=== PATIENT | male | born 1935 | race Caucasian/White ===

== ENCOUNTER 2019-07-21 09:30 | Outpatient (RCR) | payer OTHER, SELFPAY ==
--- NOTE | 2019-06-07 13:51 | ST.OPIE ---
Visit Care Team Role Provider Type Kerry Desai MD Primary Care Provider Non-Staff Specialty: Family Practice Address: [address], [address], [place], [address] Email: J Luis Tripathi MD Attending Provider Non-Staff Specialty: Neurology Address: [address], [place], [address] Email: Speech-Language Pathology Initial Evaluation MID LEVEL GAME DESIGNER Voice Resonance Evaluation Start: 06/03/19 17:29 Freq: Status: Active Protocol: Document 06/02/19 13:07 FRANTZ (Rec: 06/07/19 13:47 [email or web address] [email or web address]) Voice and Resonance Assessment Session Time Visit Start Time 13:30 Visit Stop Time 14:25 Total Visit Minutes 55 Visit Information Visit Number Initial Evaluation Plan of Care Dates 06/02/19 - 08/25/19 Insurance Information [employer] Next Note Type Next Note Type Treatment Note Referral Referring Physician Dr. Tripathi Reason for Referral Parkinson's disease Setting Setting Outpatient Care Patient History General Information This pleasant 83-yr-old male was seen by Neurologist in November of 2018 secondary to development of tremor in left hand with subsequent diagnosis of Parkinson's disease. He has started Carbadopa/Levadopa medication with some benefit. The pt underwent MRI in [place] since being seen by Neurologist, and he reports findings were normal. The pt is planning to participate in LSVT-Big PT program after the new year and arrives today for MID LEVEL GAME DESIGNER evaluation and discussion of LSVT-Loud program. He denied changes in vocal quality or loudness, stating that he has always tended to and continues to tend to speak more loudly than necessary. Also denies changes in swallow and cognition. Hearing Hearing Level Normal Vision Vision Status Impaired Comments Prescription glasses worn primarily for reading [place] Langauge Language(s) Spoken in the Home [place] Citizen Occupational Status Occupation Status Retired Previous Therapy Previous Speech-Language Therapy No Subjective Subjective The pt arrived on time and provided case history and questions related to LSVT-Loud and other related MID LEVEL GAME DESIGNER services. - Laryngeal Performance Voice Handicap Index VHI Comments Not administered. Pt denies voice handicap CAPE-V Overall Severity 6% Roughness 0% Breathiness 0% Strain 10% Pitch 11% (mildly monotone, particularly in reading task) Normal Resonance? Yes Maximum Phonation Time MPT Norms: Women (15-25) Men (25-35) Loudness (50-60 dB); Speaking Rate: Oral Reading of Sentences (190 Words Per Minute); Oral Reading of Paragraphs (160-170 WPM); Speaking Rate in Conversation (150-250 WPM) Maximum Phonation Time 20 Maximum Phonation Time Adequate for Speech Maximum Phonation Time Comments Avg loudness 70 dB; increased to 76 dB with verbal prompting Jitter/Shimmer Norms: Jitter (Less than or equal to 1.040% - Frequency) Norms: Shimmer (Less than or equal to 3.810% - Amplitude) Jitter 0.27% WNL Shimmer 2.48% WNL Pitch [place] Pitch [place] WFL Pitch [place] Comments 92-396 Hz Breath Support Speaks on Room Air Yes Voice Pitch Range Norms: Women (100-300 Hz) Men (70-250 Hz) Fundamental Frequency Norms: Women (Mean: 225 Hz; Range: 155-334 Hz) Men ( Mean: 128 Hz; Range: 85-196 Hz) Voice Pitch Normal Voice Loudness Normal Voice Phonatory-based Quality Normal Fundamental Frequency 106 Hz WNL Intensity WNL: 64-72 dB in conversation in quiet environment Paradoxical Vocal Fold Movement No Indications Resonance Nasal Resonance Normal Findings Findings Mild Impairment Voice/Resonance Assessment Assessment The pt presents with minimal impairment characterized by mild monotone vocal quality, greater in reading task than conversation. All other features are currently WNL. In consideration of new Parkinson's disease (PD) diagnosis, skilled intervention is recommended to provide education related to potential changes in function (voice, swallow, expressive/ receptive/cognitive communication skills) that often appear with PD, and to provide training in exercises and strategies to maintain or improve current function. Prognosis Rehabilitation Potential Excellent - Recommendations Treatment Recommended Yes Treatment Frequency/Duration 1x/wk for 6 wks Placement Recommendation Home Therapy Recommendations LSVT-Loud is not recommended at this time; instead less intense therapy is recommended targeting education related PD, training in vocal function (quality, varied pitch, and normal loudness) and oral motor exercises to maintain/ improve facial expression and speech intelligibility critical to expressive communication in the presence of a progressive disease. If, during the course of treatment, the pt and clinician feel the pt would benefit from a course in LSVT-Loud, POC will be modified to reflect this. The pt was in agreement with this plan. Short Term Goals 1. The pt will demonstrate understanding of potential effects of PD on voice, swallow, speech intelligibility, and expressive/receptive/ cognitive communication skills, as demonstrated by retell tasks. 2. The pt will perform sustained phonation for 25 sec with avg loudness at or above 75 dB to increase/maintain respiratory muscle strength necessary for voice, speech and swallow/cough. 3. The pt will perform pitch variation tasks (e.g., pitch glides, accent method reading/ speech tasks, etc.) with 90% accuracy to reduce monotone quality of voice. 4. The pt will perform oral motor exercises independently to improve/maintain facial expression critical to expressive communication. Customer Facilities Supervisor Goals 1. The pt will demonstrate >85% compliance with HEP to establish routine exercises and reduce rate of progression of disease symptoms. 2. The pt will maintain vocal loudness WNL in a variety of environments to improve/ maintain speech intelligibility for functional tasks. 3. The pt will employ strategies to reduce monotone and improve/maintain facial expression for expressive communication in the presence of PD. Patient/Caregiver Education Patient/Family Education Described results of evaluation,Patient Understanding,Patient Needs More Info
--- NOTE | 2019-06-29 14:31 | ST.OPTN ---
Visit Care Team Role Provider Type Kerry Desai MD Primary Care Provider Non-Staff Address: [address], [address], [place], [address] J Luis Tripathi MD Attending Provider Non-Staff Address: [address], [place], [address] CUSTOMS CONSULTANT Treatment Note CUSTOMS CONSULTANT Treatment Note Start: 06/03/19 17:29 Freq: Status: Active Protocol: Document 06/29/19 10:41 FRANTZ (Rec: 06/29/19 10:41 [email or web address]) Speech Pathology Treatment Note Session Time Visit Start Time 10:35 Visit Stop Time 11:20 Total Visit Minutes 45 Visit Information Visit Number 07/03 Plan of Care Dates 06/02/19 - 08/25/19 Insurance Information [employer] Setting Treatment Setting Outpatient Care Visit Type Note Type Treatment Note Next Note Type Next Note Type Treatment Note General Information General Information This pleasant 83-yr-old male was seen by Neurologist in November of 2018 secondary to development of tremor in left hand with subsequent diagnosis of Parkinson's disease. He has started Carbadopa/Levadopa medication with some benefit. The pt underwent MRI in [place] since being seen by Neurologist, and he reports findings were normal. The pt is planning to participate in LSVT-Big PT program after the new year and arrives today for CUSTOMS CONSULTANT evaluation and discussion of LSVT-Loud program. He denied changes in vocal quality or loudness, stating that he has always tended to and continues to tend to speak more loudly than necessary. Also denies changes in swallow and cognition. Subjective Observations/Patient Presentation Pt arrived on time. No new complaints. Chief Complaint(s) Voice Rehab Expectation/Goals: Patient Goals Maintain vocal loudness and clarity over progression of PD . Patient Knowledge/Awareness of CUSTOMS CONSULTANT Role Excellent in Treatment Objective Short Term Goals 1. The pt will demonstrate understanding of potential effects of PD on voice, swallow, speech intelligiblity , and expressive/receptive/ cognitive communication skills , as demonstrated by retell tasks. 2. The pt will perform sustained phonation for 25 sec with avg loudness at or above 75 dB to increase/maintain respiratory muscle strength necessary for voice, speech and swallow/cough. 3. The pt will perform pitch variation tasks (e.g., pitch glides, accent method reading/ speech tasks, etc.) with 90% accuracy to reduce monotone quality of voice. 4. The pt will perform oral motor exercises independently to improve/maintain facial expression critical to expressive communication. Senior Care Goals 1. The pt will demonstrate >85 % compliance with HEP to establish routine exercises and reduce rate of progression of disease symptoms. 2. The pt will maintain vocal loudness WNL in a variety of environments to improve/ maintain speech intelligibility for functional tasks. 3. The pt will employ strategies to reduce monotone and improve/maintain facial expression for expressive communication in the presence of PD. Treatment Activities Pt completed VHI with total score of 2 (1 on physical subscale, 1 on functional subscale) - WNL. Initiated LSVT-like exercises to increase breath support for voice and speech, pitch range exercises to maintain voice inflection and prevent monotone, functional phrases and reading tasks to increase vocal loudness in speech. MPT = 14.2s with loudness fading consistently (avg loudness 74 dB). Max duration with increased loudness effort = 10.26s with avg 83.5 dB. Pitch Range = 88-382 Hz, avg loudness (high) 85.5, (low) 74 .5 Pt read functional phrases with avg loudness 73 dB Assessment Patient Response to Treatment Excellent Rehab Potential Excellent Impairments Identified Parkinson's Disease,Speech Intelligibility,Vocal Quality Assessment of Improvement The pt was highly receptive to exercises targeting increasing breath support, maintaining functional loudness levels of voice, and pitch range exercises to prevent/decrease monotone. He participated in creating functional phrases and verbalized understanding of their purpose in promoting internal prompts. The pt expressed concern of occasional feelings of running out of breath when speaking, and that he and his both tend to be monotone and will benefit from these exercises. Reviewed with Patient Goals,Progress Being Made,Home Exercise Program Patient/Caregiver Understanding Excellent Plan Treatment Emphasis Next Session Reading passages targeting vocal inflection Therapeutic Contents Client Education,Home Exercise Program,Voice Training Provided Patient/Caregiver Instruction Home Exercise Program,Plan of Care,Questions/Concerns Therapy Recommendations Continue with Current Program
--- NOTE | 2019-07-13 16:38 | ST.OPTN ---
Visit Care Team Role Provider Type Kerry Desai MD Primary Care Provider Non-Staff Address: [address], [address], [place], [address] J Luis Tripathi MD Attending Provider Non-Staff Address: [address], [place], [address] MACHINE SET UP OPERATOR Treatment Note MACHINE SET UP OPERATOR Treatment Note Start: 06/03/19 17:29 Freq: Status: Active Protocol: Document 07/13/19 16:23 FRANTZ (Rec: 07/13/19 16:38 [email or web address]) Speech Pathology Treatment Note Session Time Visit Start Time 15:30 Visit Stop Time 16:18 Total Visit Minutes 48 Visit Information Visit Number 08/03 Plan of Care Dates 06/02/19 - 08/25/19 Insurance Information [employer] Setting Treatment Setting Outpatient Care Visit Type Note Type Treatment Note Next Note Type Next Note Type Treatment Note General Information General Information This pleasant 83-yr-old male was seen by Neurologist in November of 2018 secondary to development of tremor in left hand with subsequent diagnosis of Parkinson's disease. He has started Carbadopa/Levadopa medication with some benefit. The pt underwent MRI in [place] since being seen by Neurologist, and he reports findings were normal. The pt is planning to participate in [facility]Big PT program after the new year and arrives today for MACHINE SET UP OPERATOR evaluation and discussion of [facility]-Loud program. He denied changes in vocal quality or loudness, stating that he has always tended to and continues to tend to speak more loudly than necessary. Also denies changes in swallow and cognition. Subjective Observations/Patient Presentation Pt arrived on time. No new complaints. Reported difficulty completing low pitch exercises stating that he runs out of breath. Chief Complaint(s) Voice Rehab Expectation/Goals: Patient Goals Maintain vocal loudness and clarity over progression of PD . Patient Knowledge/Awareness of MACHINE SET UP OPERATOR Role Excellent in Treatment Objective Short Term Goals 1. The pt will demonstrate understanding of potential effects of PD on voice, swallow, speech intelligiblity , and expressive/receptive/ cognitive communication skills , as demonstrated by retell tasks. 2. The pt will perform sustained phonation for 25 sec with avg loudness at or above 75 dB to increase/maintain respiratory muscle strength necessary for voice, speech and swallow/cough. 3. The pt will perform pitch variation tasks (e.g., pitch glides, accent method reading/ speech tasks, etc.) with 90% accuracy to reduce monotone quality of voice. 4. The pt will perform oral motor exercises independently to improve/maintain facial expression critical to expressive communication. District Manager Primary Care Sales Goals 1. The pt will demonstrate >85 % compliance with HEP to establish routine exercises and reduce rate of progression of disease symptoms. 2. The pt will maintain vocal loudness WNL in a variety of environments to improve/ maintain speech intelligibility for functional tasks. 3. The pt will employ strategies to reduce monotone and improve/maintain facial expression for expressive communication in the presence of PD. Treatment Activities Educated and trained pt in diaphragmatic breathing to increase breath support for speech and voice. Pt returned demonstration and verbalized understanding. Using diaphragmatic breathing, he extended sustained phonation from 6.7s to 13 sec (MPT). Avg loudness across 6 trials was 72.8 dB. Pitch range: 106-385 Hz. Avg loudness gliding up the scale was 84.2 dB; down scale was 78 .8. As the pt reduced pitch, his voice became increasingly breathy. Trained pt in staccato phonation to increase VF closure, which improved quality of voice. The pt read functional phrases with ave loudness of 79 dB ( WNL). Assessment Patient Response to Treatment Good Rehab Potential Excellent Impairments Identified Parkinson's Disease,Speech Intelligibility,Vocal Quality Assessment of Improvement Pt conitnues with MPT below normal levels, although he benefited from training/use of diaphragmatic breathing. He frequently exhibited increased strained voicing at ends of sentences as he attempted to continue speaking with lettle breath support. I suspect if conversation partners have difficulty understanding or hearing him, it is at the ends of such sentences. The pt was receptive to this feedback. Recommend continuing training on diaphragmatic breathing and control of airstream to increase his ability to maintain good voicing across extended speech. Reviewed with Patient Goals,Progress Being Made,Home Exercise Program Patient/Caregiver Understanding Excellent Plan Treatment Emphasis Next Session Reading passages targeting vocal inflection and duration of breath support Therapeutic Contents Client Education,Home Exercise Program,Intelligibility,Voice Training Provided Patient/Caregiver Instruction Home Exercise Program,Plan of Care,Questions/Concerns Therapy Recommendations Continue with Current Program
--- NOTE | 2019-07-21 11:21 | ST.OPDS ---
Visit Care Team Role Provider Type Kerry Desai MD Primary Care Provider Non-Staff Address: [address], [address], [place], [address] J Luis Tripathi MD Attending Provider Non-Staff Address: [address], [place], [address] MODEL MAKER FIREARMS Treatment Note MODEL MAKER [employer]REARMS Treatment Note Start: 06/03/19 17:29 Freq: Status: Active Protocol: Document 07/21/19 10:51 FRANTZ (Rec: 07/21/19 11:21 [email or web address]) Speech Pathology Treatment Note Session Time Visit Start Time 09:30 Visit Stop Time 10:40 Total Visit Minutes 70 Visit Information Visit Number 08/31 Plan of Care Dates 06/02/19 - 08/25/19 Insurance Information [employer] Setting Treatment Setting Outpatient Care Visit Type Note Type Discharge Summary General Information General Information This pleasant 83-yr-old male was seen by Neurologist in November of 2018 secondary to development of tremor in left hand with subsequent diagnosis of Parkinson's disease. He has started Carbadopa/Levadopa medication with some benefit. The pt underwent MRI in [place] since being seen by Neurologist, and he reports findings were normal. The pt is planning to participate in LSVT-Big PT program after the new year and arrives today for MODEL MAKER FIREARMS evaluation and discussion of LSVT-Loud program. He denied changes in vocal quality or loudness, stating that he has always tended to and continues to tend to speak more loudly than necessary. Also denies changes in swallow and cognition. Subjective Observations/Patient Presentation Pt arrived on time. No new complaints. Reported having seen his Neurologist, Dr. Tripathi, who was in agreement with limited course of Speech Pathology and deferment of LSVT-Loud until/unless the pt experiences any changes or worsening of symptoms in areas of speech, voice, and swallow . The pt had several questions related to these symptoms, which were all answered orally and in writing. The pt will be leaving for an extended trip out of state in July. Agreed this would be final session for this course of therapy. Chief Complaint(s) Voice Rehab Expectation/Goals: Patient Goals Maintain vocal loudness and clarity over progression of PD . Patient Knowledge/Awareness of MODEL MAKER FIREARMS Role Excellent in Treatment Objective Short Term Goals 1. The pt will demonstrate understanding of potential effects of PD on voice, swallow, speech intelligiblity , and expressive/receptive/ cognitive communication skills , as demonstrated by retell tasks. GOAL MET 2. The pt will perform sustained phonation for 25 sec with avg loudness at or above 75 dB to increase/maintain respiratory muscle strength necessary for voice, speech and swallow/cough. GOAL NOT MET. MPT = 14.2s 3. The pt will perform pitch variation tasks (e.g., pitch glides, accent method reading/ speech tasks, etc.) with 90% accuracy to reduce monotone quality of voice. GOSL MET 4. The pt will perform oral motor exercises independently to improve/maintain facial expression critical to expressive communication. TX TOWARD GOAL INITIATED: GOAL NOT MET. Fdc Goals 1. The pt will demonstrate >85 % compliance with HEP to establish routine exercises and reduce rate of progression of disease symptoms. GOAL MET 2. The pt will maintain vocal loudness WNL in a variety of environments to improve/ maintain speech intelligibility for functional tasks. GOAL MET 3. The pt will employ strategies to reduce monotone and improve/maintain facial expression for expressive communication in the presence of PD. TX TOWARD GOAL INITIATED. GOAL NOT MET. Treatment Activities Education was provided in answer to the pt's questions RE potential impacts of PD on voice, speech, swallow, and facial expression. Information was provided orally and in writing. Breath Support: Pt read sentence of 23 words on one breath with adequate breath support for voice and loudness . Pt read sentence of 26 words on one breath but exhibited increased strain and decreased loudness at end of sentence. Skilled feedback provided RE finding natural pauses for breath and increasing awareness of body sensations and voice changes when breath support is not adequate for speech. Trained pt in finding natural pauses to take breaths as needed to keep voice strong and speech intelligible . Trained pt in using sentences of increased length to improve strength and control of respiratory muscles to improve efficiency of breath support for voice and speech. Facial Expression & Prosodic Features of Voice: Pt performed pitch glides with range of 116-226 Hz. Trained pt in exercises to maintain/ improve facial expression for communication purposes. The pt returned demonstration, demonstrating ROM of facial features (forehead, eyes, cheeks, lips) WNL. In conversation, the pt's use of facial expressions is limited, usually reflecting a cheerful demeanor, which reflects his typical disposition in treatment. Given 5 words representing a range of emotions and instructions to reflect emotions with facial expressions, the pt exhibited very little variation in facial expression. Given a paragraph of moderate length and a word bank reflecting various emotions, trained pt in reading the paragraph using voice inflections to reflect the emotions. Pt returned demonstration with similar response as with facial expressions. Skilled feedback was provided, and the pt was instructed to add these exercises and tasks to his HEP to prevent flat affect and monotone voice that is common with PD. Pt was in agreement. Assessment Patient Response to Treatment Good Rehab Potential Excellent Impairments Identified Parkinson's Disease,Speech Intelligibility,Vocal Quality Assessment of Improvement Over the course of tx, the pt has been very participatory and engaged in education and exercises to increase breath support for voice and speech, to maintain broad range of pitch, maintain normal loudness levels in speech, and maintain/improve facial expressions important for expressive communication. He has met many goals and made good progress toward others. He has demonstrated a good understanding of all education provided, potential effects of PD on voice, speech intelligibility, facial expression, writing, swallow, and cognitive communication skills. At this time, the pt measures WNL in vocal loudness and speech intelligiblity. He denies dysphagia symptoms and does not demonstrated decline in cognitive communication abilities. He exhibits reduced sustained phonation (max 14 sec, where 25-35 sec is normal for adult males) and mildly reduced prosodic features of voice and facial expression. This has been communicated to the pt, who has verbalized and demonstrated understanding, and his HEP has been build to address these potential deficits. At this time he is able to communicate effectively in a variety of settings and with various communication partners . He and his will be out of state in the coming months. Therefore, he will be discharged from skilled intervention at this time but has been encouraged to return should symptoms worsen or new symptoms appear. He is in agreement with this plan. Reviewed with Patient Goals,Progress Being Made,Home Exercise Program Patient/Caregiver Understanding Excellent Plan Therapeutic Contents Client Education,Home Exercise Program,Intelligibility,Voice Training Provided Patient/Caregiver Instruction Home Exercise Program,Plan of Care,Questions/Concerns Therapy Recommendations Discharge to Home Exercise Program
== END 2019-12-02 13:18 ==
LOC: SP 09:30
PROVIDERS: PCP Family Medicine; Visit Provider Psychiatry & Neurology Neurology
DX: G20 Parkinson's disease (principal)
CPT/HCPCS: 92507; 92520; 92524

== ENCOUNTER 2019-08-04 11:00 | Outpatient (RCR) | payer OTHER, SELFPAY ==
--- NOTE | 2019-07-13 16:06 | PT.OIE ---
Current Diagnoses Parkinson's disease (07/13/19) Tremor, unspecified (07/13/19) Unspecified abnormalities of gait and mobility (07/13/19) Visit Care Team Role Provider Type Kerry Desai MD Primary Care Provider Non-Staff Specialty: Family Practice Address: [address] [place] [address], [address], [place], [address] Email: Attending Provider Specialty: Address: Phone: Fax: Email: Physical Therapy Initial Evaluation PT-OP-A Visit Information Start: 07/13/19 13:49 Freq: Status: Active Protocol: Document 07/13/19 14:16 EG (Rec: 07/13/19 15:44 EG [email or web address]) Out-Patient Physical Therapy Visit Information Visit Information Visit Type Initial Evaluation Visit Note 07/09 BIG Program treatment Visit Start Time 11:00 Visit Stop Time 12:00 Total Visit Minutes 60 Visit Number 1 Number of PAWN SHOP KEEPER Visits 0 Evaluation Information Evaluation Date 07/13/19 PT-OP-B Current Condition Start: 07/13/19 13:49 Freq: Status: Active Protocol: Document 07/13/19 14:16 EG (Rec: 07/13/19 15:44 EG [email or web address]) Current Condition History of Current Condition Onset Date 03/2019 Current Complaints Tremor in L hand History of Current Condition Patient is an 83 year old male who presents to Physical Therapy after a referral from Neurologist after recently being diagnosed with Parkinson 's Disease. Patient currently went to MD/Neurologist after children recognized tremor in L hand in March. He was put on Levadopa at this time and has been taking it ever since. The patient has noticed little results from the medication. The patient has not had any complaints of balance and has not had any falls within the last year. The biggest complaint the patient has in a lack of being limber and has recognized that it is harder for him to pick things up off the floor without getting down on one knee. Patient does not exercise often if at all. Patient also states that when he is doing activities at home , he can control the tremor in his L hand and that it only occurs during rest. Patient currently lives with and 2 dogs, is driving, and independent in all activities. Patient has had history of back pain and shoulder pain which has been relieved after drinking more water and going to physical therapy. Patient denies any problems with swallowing, pneumonia, past falls, or freezing. Prior Treatments and Tests Seen neurologist for medication for Parkinson Disease. Seen FAMILY SERVICE ASSISTANT but did not need to focus on loud training . Future Testing and Treatments Planned Continue to see neurologist. Treatment Goals Patient/Caregiver Goals Patient would like to be able to get more limber. 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 Baseline Function- Recreation/Hobbies Golf, [place] and go [place], quality time with family, babysit grandchildren Current Functional Impairments (Reported) Functional Limitations- ADL's None Functional Limitations- Mobility/Gait None Functional Limitations- Work/School None Functional Limitations- Recreation/ Bending over to get golf ball Hobbies or pick things up from the ground Personal Factors Other Personal Factors That May Effect High Cholesterol, Motivation Therapy/Recovery to finish, Back Pain PT-OP-C Subjective Start: 07/13/19 13:49 Freq: Status: Active Protocol: Document 07/13/19 14:16 EG (Rec: 07/13/19 15:44 EG [email or web address]) OP-PT Pain Assessment Pain Assessment Grid Paper Pain Assessment Grid Completed Yes: 3 in lower back PT-OP-D Balance Start: 07/13/19 13:49 Freq: Status: Active Protocol: Document 07/13/19 14:16 EG (Rec: 07/13/19 15:44 EG [email or web address]) OP-PT Balance Assessment Sitting Balance Static Sitting Balance Ability Normal Dynamic Sitting Balance Ability Normal Standing Balance Static Standing Balance Ability Normal Dynamic Standing Balance Ability Normal Liu Fall Scale Copyright Permission PT-OP-E Functional Tests Start: 07/13/19 13:49 Freq: Status: Active Protocol: Document 07/13/19 14:16 EG (Rec: 07/13/19 15:44 EG [email or web address]) Functional Tests 6 Minute Walk Test Distance 1,530 feet 10 Meter Walk Test Distance 10 meter Comments normal walkin.67 m/sec fast walkin.0 m/sec Five Times Sit to Stand Test Score 18 sec, 14sec, 14 sec Comments average of 3 rounds: 15.33 sec Other Mini-BESTest Name of Test MINI-BESTest (Balance Evaluation Systems Test) Score 25/28 PT-OP-G Mobility & Gait Start: 07/13/19 13:49 Freq: Status: Active Protocol: Document 07/13/19 14:16 EG (Rec: 07/13/19 15:44 EG [email or web address]) OP Gait Assessment Gait Gait Assistance Required: Independent Gait Deviations General Gait Pattern Within Normal Limits Comments Gait Comments Decreased swing on L side with hiked R shoulder. Decreased step height with increased endurance training during ambulation. L foot caught on ground with min LOB that was recovered with no help from PT at around min 5:40 during 6- MWT. PT-OP-J Posture/Palpation/Skin Start: 07/13/19 13:49 Freq: Status: Active Protocol: Document 07/13/19 14:16 EG (Rec: 07/13/19 15:44 EG [email or web address]) Posture Evaluation Position Sitting Evaluation View Anterior Head/C-Spine Posture Flexed T-Spine Posture Increased Kyphosis Shoulder Posture (L) Rounded,(R) Rounded,(R) Elevated PT-OP-Q Treatments Start: 07/13/19 13:49 Freq: Status: Active Protocol: Document 07/13/19 14:16 EG (Rec: 07/13/19 15:44 EG [email or web address]) Therapeutic Activity Therapeutic Activity STS, Walking over obstacles Name STS, walking over obstacles Reps/Minutes 3x5 for STS Comments Step over 8 inch box Gait Training Gait Activity Gait mechanics Description Ambulation mechanics Level of Assistance SBA Surface flat Distance/Duration 10 min Treatment Focus postural correction during increased gait distance Comments Slight decrease in L arm swing with decreased step height occuring around minute 5 PT-OP-T Assessment and Plan Start: 07/13/19 13:49 Freq: Status: Active Protocol: Document 07/13/19 14:16 EG (Rec: 07/13/19 15:44 EG [email or web address]) Physical Therapy Assessment Rehab Potential Rehabilitation Potential Excellent Evaluation Complexity Number of Personal Factors/Comorbidities 1-2 Number of Body Systems Impaired 4 or More Clinical Presentation at Evaluation Stable Impairments Impairments Activity Tolerance,Balance, Coordination,Functional Activities,Functional Mobility ,Gait,ROM Goals Three Impairment Balance and ROM Short Term Goal (STG) Patient will complete HEP of doing LSVT BIG program exercises 2x/day during the next 4 weeks to help increase ROM during ADL's and increase balance activities to decrease fall risk. STG Duration 4 weeks Two Impairment Gait Short Term Goal (STG) Patient will be able to increase amplitude of movement of L arm swing when walking to be equal to R arm swing when walking for duration of 6 minutes within 2 weeks. STG Duration 2 weeks Delivery Driver/Supervisor Goal (LTG) Patient will be able to maintain amplitude of movement in both arms and legs as well as keep fingers extended during duration of 6 minute walk without cueing in 4 weeks . LTG Duration 4 weeks One Impairment Functional Activity Short Term Goal (STG) Patient will be able to bend down and potato picker an object that is one foot from the ground with out getting down on one knee in 2 weeks. STG Duration 2 weeks Usp Goal (LTG) Patient will be able to bend down and potato picker golf ball with correct mechanics without getting down on one knee in 4 weeks. LTG Duration 4 weeks Assessment Summary Assessment Patient is an otherwise healthy 83 year old male who has been diagnosed with Parkinson Disease and presents to physical therapy to participate in the LSVT BIG program to help increase his neuroprotective factors and decrease progression of disease as patient ages by participating in increased exercises focused on amplitude and intensity of movement. During the program, patient will be working on increasing amplitude of movements and increasing both fine motor and large movement coordination. Patient will also be increasing amplitude of steps to decrease risk of future falls. Patient will also benefit from Physical Therapy LSVT program to increase strength of postural muscles to slow progression of postural instability. Physical Therapy Plan Frequency and Duration Frequency of Treatment 4x/Week Duration of Treatment 4 weeks Plan of Care Start Date 07/13/19 Plan of Care End Date 08/14/19 Next Visit Focus/Plan Next Note Type Treatment Note Next Visit Plan Introduce BIG exercises and look at homework. Please perform MDS-UPDRS part III Motor examination.
--- NOTE | 2019-07-13 16:08 | PT.OPPOC ---
Physical, Occupational & Speech Therapy At [facility] Current Diagnoses Parkinson's disease (07/13/19) Tremor, unspecified (07/13/19) Unspecified abnormalities of gait and mobility (07/13/19) Visit Care Team Role Provider Type Kerry Desai MD Primary Care Provider Non-Staff Specialty: Family Practice Address: [address] [place] [address], [address], [place], [address] Email: Attending Provider Specialty: Address: Phone: Fax: Email: Plan Of Care PT-OP-T Assessment and Plan Start: 07/13/19 13:49 Freq: Status: Active Protocol: Document 07/13/19 14:16 EG (Rec: 07/13/19 15:44 EG [email or web address]) Physical Therapy Assessment Rehab Potential Rehabilitation Potential Excellent Evaluation Complexity Number of Personal Factors/Comorbidities 1-2 Number of Body Systems Impaired 4 or More Clinical Presentation at Evaluation Stable Impairments Impairments Activity Tolerance,Balance, Coordination,Functional Activities,Functional Mobility ,Gait,ROM Goals Three Impairment Balance and ROM Short Term Goal (STG) Patient will complete HEP of doing LSVT BIG program exercises 2x/day during the next 4 weeks to help increase ROM during ADL's and increase balance activities to decrease fall risk. STG Duration 4 weeks Two Impairment Gait Short Term Goal (STG) Patient will be able to increase amplitude of movement of L arm swing when walking to be equal to R arm swing when walking for duration of 6 minutes within 2 weeks. STG Duration 2 weeks Branch Coordinator Goal (LTG) Patient will be able to maintain amplitude of movement in both arms and legs as well as keep fingers extended during duration of 6 minute walk without cueing in 4 weeks . LTG Duration 4 weeks One Impairment Functional Activity Short Term Goal (STG) Patient will be able to bend down and picker packer an object that is one foot from the ground with out getting down on one knee in 2 weeks. STG Duration 2 weeks Branch Coordinator Goal (LTG) Patient will be able to bend down and picker packer golf ball with correct mechanics without getting down on one knee in 4 weeks. LTG Duration 4 weeks Assessment Summary Assessment Patient is an otherwise healthy 83 year old male who has been diagnosed with Parkinson Disease and presents to physical therapy to participate in the LSVT BIG program to help increase his neuroprotective factors and decrease progression of disease as patient ages by participating in increased exercises focused on amplitude and intensity of movement. During the program, patient will be working on increasing amplitude of movements and increasing both fine motor and large movement coordination. Patient will also be increasing amplitude of steps to decrease risk of future falls. Patient will also benefit from Physical Therapy LSVT program to increase strength of postural muscles to slow progression of postural instability. Physical Therapy Plan Frequency and Duration Frequency of Treatment 4x/Week Duration of Treatment 4 weeks Plan of Care Start Date 07/13/19 Plan of Care End Date 08/14/19 Next Visit Focus/Plan Next Note Type Treatment Note Next Visit Plan Introduce BIG exercises and look at homework. Please perform MDS-UPDRS part III Motor examination. Plan of Care Dates Plan of Care Start Date 07/13/19 Plan of Care End Date 08/14/19 Electronically Signed by: Agatha Morgan, PT 07/13/19 [id number] I, Agatha Morgan, DPT, supervised all treatment performed by, and agreed with the plan of care, as performed by Sunshine Spicer, MAIRA. Please Sign and Return: I have reviewed this Plan of Care and certify that the skilled therapy services above are required to meet the patient?s needs. Physician Signature Date Printed Name and Credentials Clinical Instructor Signature Printed Name and Credentials
--- NOTE | 2019-07-14 12:32 | PT.OTN ---
Current Diagnoses Parkinson's disease (07/14/19) Tremor, unspecified (07/14/19) Unspecified abnormalities of gait and mobility (07/14/19) Physical Therapy Treatment Note PT-OP-A Visit Information Start: 07/13/19 13:49 Freq: Status: Active Protocol: Document 07/14/19 12:02 AW (Rec: 07/14/19 12:32 AW [email or web address]) Out-Patient Physical Therapy Visit Information Visit Information Visit Type Treatment Note Visit Note 08/09 BIG Program treatment Visit Start Time 11:00 Visit Stop Time 12:00 Total Visit Minutes 60 Visit Number 2 Number of SUPERVISOR COMPONENT ASSEMBLER Visits 0 PT-OP-B Current Condition Start: 07/13/19 13:49 Freq: Status: Active Protocol: Document 07/13/19 14:16 EG (Rec: 07/13/19 15:44 EG [email or web address]) Current Condition History of Current Condition Onset Date 03/2019 Current Complaints Tremor in L hand History of Current Condition Patient is an 83 year old male who presents to Physical Therapy after a referral from Neurologist after recently being diagnosed with Parkinson 's Disease. Patient currently went to MD/Neurologist after children recognized tremor in L hand in March. He was put on Levadopa at this time and has been taking it ever since. The patient has noticed little results from the medication. The patient has not had any complaints of balance and has not had any falls within the last year. The biggest complaint the patient has in a lack of being limber and has recognized that it is harder for him to pick things up off the floor without getting down on one knee. Patient does not exercise often if at all. Patient also states that when he is doing activities at home , he can control the tremor in his L hand and that it only occurs during rest. Patient currently lives with and 2 dogs, is driving, and independent in all activities. Patient has had history of back pain and shoulder pain which has been relieved after drinking more water and going to physical therapy. Patient denies any problems with swallowing, pneumonia, past falls, or freezing. Prior Treatments and Tests Seen neurologist for medication for Parkinson Disease. Seen SCIENTIFIC RESEARCH ASSOCIATE but did not need to focus on loud training . Future Testing and Treatments Planned Continue to see neurologist. Treatment Goals Patient/Caregiver Goals Patient would like to be able to get more limber. 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 Baseline Function- Recreation/Hobbies Golf, [place] and go [place], quality time with family, babysit grandchildren Current Functional Impairments (Reported) Functional Limitations- ADL's None Functional Limitations- Mobility/Gait None Functional Limitations- Work/School None Functional Limitations- Recreation/ Bending over to get golf ball Hobbies or pick things up from the ground Personal Factors Other Personal Factors That May Effect High Cholesterol, Motivation Therapy/Recovery to finish, Back Pain PT-OP-C Subjective Start: 07/13/19 13:49 Freq: Status: Active Protocol: Document 07/14/19 12:02 AW (Rec: 07/14/19 12:32 AW [email or web address]) OP-PT Subjective Patient Comments Patient Comments Pt has an appointment with neurology in [place] on Saturday. Rescheduled Saturday appointment. PT-OP-D Balance Start: 07/13/19 13:49 Freq: Status: Active Protocol: Document 07/13/19 14:16 EG (Rec: 07/13/19 15:44 EG [email or web address]) OP-PT Balance Assessment Sitting Balance Static Sitting Balance Ability Normal Dynamic Sitting Balance Ability Normal Standing Balance Static Standing Balance Ability Normal Dynamic Standing Balance Ability Normal Liu Fall Scale Copyright Permission PT-OP-E Functional Tests Start: 07/13/19 13:49 Freq: Status: Active Protocol: Document 07/13/19 14:16 EG (Rec: 07/13/19 15:44 EG [email or web address]) Functional Tests 6 Minute Walk Test Distance 1,530 feet 10 Meter Walk Test Distance 10 meter Comments normal walkin.67 m/sec fast walkin.0 m/sec Five Times Sit to Stand Test Score 18 sec, 14sec, 14 sec Comments average of 3 rounds: 15.33 sec Other Mini-BESTest Name of Test MINI-BESTest (Balance Evaluation Systems Test) Score 25/28 PT-OP-G Mobility & Gait Start: 07/13/19 13:49 Freq: Status: Active Protocol: Document 07/13/19 14:16 EG (Rec: 07/13/19 15:44 EG [email or web address]) OP Gait Assessment Gait Gait Assistance Required: Independent Gait Deviations General Gait Pattern Within Normal Limits Comments Gait Comments Decreased swing on L side with hiked R shoulder. Decreased step height with increased endurance training during ambulation. L foot caught on ground with min LOB that was recovered with no help from PT at around min 5:40 during 6- MWT. PT-OP-J Posture/Palpation/Skin Start: 07/13/19 13:49 Freq: Status: Active Protocol: Document 07/13/19 14:16 EG (Rec: 07/13/19 15:44 EG [email or web address]) Posture Evaluation Position Sitting Evaluation View Anterior Head/C-Spine Posture Flexed T-Spine Posture Increased Kyphosis Shoulder Posture (L) Rounded,(R) Rounded,(R) Elevated PT-OP-Q Treatments Start: 07/13/19 13:49 Freq: Status: Active Protocol: Document 07/14/19 12:02 AW (Rec: 07/14/19 12:32 AW [email or web address]) Therapeutic Exercises Sitting Exercises side to side Sitting Exercise Name side to side Side bilateral Reps/Minutes 8 each side Comments cues for upright trunk, modeling for supinated forearm floor to ceiling Sitting Exercise Name floor to ceiling Side bilateral Reps/Minutes 8 Comments cues for big hands, crisp movement Standing Exercises sideways step Standing Exercise Name sideways step Side bilateral Reps/Minutes 8 each side Comments cues for rotation, big arms front and back forward step Standing Exercise Name forward step Side bilateral Reps/Minutes 8 each side Comments cues for big step back to center Other Exercises sideways rock and reach Other Exercise Name sideways rock and reach Side bilateral Reps/Minutes 8 each side Comments cues for back foot pivot; advised pt to perform in front of couch at home forward rock and reach Other Exercise Name forward rock and reach Side bilateral Reps/Minutes 8 each side Comments cues for bigger arm swing backward step Other Exercise Name backward step Side bilateral Equipment Used chair for UE support Reps/Minutes 8 each side Comments cues for weight shift Therapeutic Activity Therapeutic Activity STS, Walking over obstacles Name STS Reps/Minutes 2x5 reps Comments 18 mat; demonstration and cues for big forward lean Gait Training Gait Activity hurdles Description hurdles Level of Assistance SBA Surface carpet Distance/Duration 4 hurdles x 10 Treatment Focus posture, arm swing Comments Pt able to clear all hurdles with the exception of one during first trial. Focused on maintaining upright posture and arm swing during tiffany navigation. Gait mechanics Description BIG walking Level of Assistance SBA Surface level, tile and carpet Distance/Duration 8 minutes Treatment Focus foot clearance, arm swing Comments Pt able to focus on one element of gait training at a time but had increased difficulty when asked to focus on foot clearance and arm swing simultaneously PT-OP-T Assessment and Plan Start: 07/13/19 13:49 Freq: Status: Active Protocol: Document 07/14/19 12:02 AW (Rec: 07/14/19 12:32 AW [email or web address]) Physical Therapy Assessment Impairments Impairments Activity Tolerance,Balance, Coordination,Functional Activities,Functional Mobility ,Gait,ROM Goals Three Impairment Balance and ROM Short Term Goal (STG) Patient will complete HEP of doing [facility] BIG program exercises 2x/day during the next 4 weeks to help increase ROM during ADL's and increase balance activities to decrease fall risk. STG Duration 4 weeks Two Impairment Gait Short Term Goal (STG) Patient will be able to increase amplitude of movement of L arm swing when walking to be equal to R arm swing when walking for duration of 6 minutes within 2 weeks. STG Duration 2 weeks Nursing Home Goal (LTG) Patient will be able to maintain amplitude of movement in both arms and legs as well as keep fingers extended during duration of 6 minute walk without cueing in 4 weeks . LTG Duration 4 weeks One Impairment Functional Activity Short Term Goal (STG) Patient will be able to bend down and pickle processor an object that is one foot from the ground with out getting down on one knee in 2 weeks. STG Duration 2 weeks Shingles Roofer Goal (LTG) Patient will be able to bend down and pickle processor golf ball with correct mechanics without getting down on one knee in 4 weeks. LTG Duration 4 weeks Assessment Summary Assessment Jacques tolerated first treatment well. Time spent primarily on introducing exercises today. Pt appeared short of breath during several exercises but denied discomfort. BP was 130/90 during activity. Gait training included level surface with pt struggling to maintain focus on more than one element at a time, e.g., foot clearance and arm swing. Pt was advised to complete the maximal daily exercises at home to the best of his ability, using a chair or counter for UE support with backward stepping due to balance concerns. He is excited to get started and to have a structured plan for activity. Physical Therapy Plan Frequency and Duration Frequency of Treatment 4x/Week Duration of Treatment 4 weeks Plan of Care Start Date 07/13/19 Plan of Care End Date 08/14/19 Next Visit Focus/Plan Next Note Type Treatment Note Next Visit Plan - MDS-UPDRS part III Motor examination - copy Functional Tasks form for chart - initiate functional task training
--- NOTE | 2019-07-15 12:24 | PT.OTN ---
Current Diagnoses Parkinson's disease (07/15/19) Tremor, unspecified (07/15/19) Unspecified abnormalities of gait and mobility (07/15/19) Physical Therapy Treatment Note PT-OP-A Visit Information Start: 07/13/19 13:49 Freq: Status: Active Protocol: Document 07/15/19 12:07 AW (Rec: 07/15/19 12:24 AW [email or web address]) Out-Patient Physical Therapy Visit Information Visit Information Visit Type Treatment Note Visit Note 09/06 BIG Program treatment Visit Start Time 11:00 Visit Stop Time 12:00 Total Visit Minutes 60 Visit Number 3 Number of MANAGER OF SALES Visits 0 Evaluation Information Evaluation Date 07/13/19 PT-OP-B Current Condition Start: 07/13/19 13:49 Freq: Status: Active Protocol: Document 07/13/19 14:16 EG (Rec: 07/13/19 15:44 EG [email or web address]) Current Condition History of Current Condition Onset Date 03/2019 Current Complaints Tremor in L hand History of Current Condition Patient is an 83 year old male who presents to Physical Therapy after a referral from Neurologist after recently being diagnosed with Parkinson 's Disease. Patient currently went to MD/Neurologist after children recognized tremor in L hand in March. He was put on Levadopa at this time and has been taking it ever since. The patient has noticed little results from the medication. The patient has not had any complaints of balance and has not had any falls within the last year. The biggest complaint the patient has in a lack of being limber and has recognized that it is harder for him to pick things up off the floor without getting down on one knee. Patient does not exercise often if at all. Patient also states that when he is doing activities at home , he can control the tremor in his L hand and that it only occurs during rest. Patient currently lives with and 2 dogs, is driving, and independent in all activities. Patient has had history of back pain and shoulder pain which has been relieved after drinking more water and going to physical therapy. Patient denies any problems with swallowing, pneumonia, past falls, or freezing. Prior Treatments and Tests Seen neurologist for medication for Parkinson Disease. 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 Future Testing and Treatments Planned Continue to see neurologist. Treatment Goals Patient/Caregiver Goals Patient would like to be able to get more limber. 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 Baseline Function- Recreation/Hobbies Golf, drive [place] and go [place], quality time with family, babysit grandchildren Current Functional Impairments (Reported) Functional Limitations- ADL's None Functional Limitations- Mobility/Gait None Functional Limitations- Work/School None Functional Limitations- Recreation/ Bending over to get golf ball Hobbies or pick things up from the ground Personal Factors Other Personal Factors That May Effect High Cholesterol, Motivation Therapy/Recovery to finish, Back Pain PT-OP-C Subjective Start: 07/13/19 13:49 Freq: Status: Active Protocol: Document 07/15/19 12:07 AW (Rec: 07/15/19 12:22 AW [email or web address]) OP-PT Subjective Patient Comments Patient Comments Pt is feeling sore after doing exercises twice yesterday but denies any pain. PT-OP-D Balance Start: 07/13/19 13:49 Freq: Status: Active Protocol: Document 07/13/19 14:16 EG (Rec: 07/13/19 15:44 EG [email or web address]) OP-PT Balance Assessment Sitting Balance Static Sitting Balance Ability Normal Dynamic Sitting Balance Ability Normal Standing Balance Static Standing Balance Ability Normal Dynamic Standing Balance Ability Normal Liu Fall Scale Copyright Permission PT-OP-E Functional Tests Start: 07/13/19 13:49 Freq: Status: Active Protocol: Document 07/13/19 14:16 EG (Rec: 07/13/19 15:44 EG [email or web address]) Functional Tests 6 Minute Walk Test Distance 1,530 feet 10 Meter Walk Test Distance 10 meter Comments normal walkin.67 m/sec fast walkin.0 m/sec Five Times Sit to Stand Test Score 18 sec, 14sec, 14 sec Comments average of 3 rounds: 15.33 sec Other Mini-BESTest Name of Test MINI-BESTest (Balance Evaluation Systems Test) Score 25/28 PT-OP-G Mobility & Gait Start: 07/13/19 13:49 Freq: Status: Active Protocol: Document 07/13/19 14:16 EG (Rec: 07/13/19 15:44 EG [email or web address]) OP Gait Assessment Gait Gait Assistance Required: Independent Gait Deviations General Gait Pattern Within Normal Limits Comments Gait Comments Decreased swing on L side with hiked R shoulder. Decreased step height with increased endurance training during ambulation. L foot caught on ground with min LOB that was recovered with no help from PT at around min 5:40 during 6- MWT. PT-OP-J Posture/Palpation/Skin Start: 07/13/19 13:49 Freq: Status: Active Protocol: Document 07/13/19 14:16 EG (Rec: 07/13/19 15:44 EG [email or web address]) Posture Evaluation Position Sitting Evaluation View Anterior Head/C-Spine Posture Flexed T-Spine Posture Increased Kyphosis Shoulder Posture (L) Rounded,(R) Rounded,(R) Elevated PT-OP-Q Treatments Start: 07/13/19 13:49 Freq: Status: Active Protocol: Document 07/15/19 12:07 AW (Rec: 07/15/19 12:22 AW [email or web address]) Therapeutic Exercises Sidelying Exercises open book Sidelying Exercise Name open book Side bilateral Reps/Minutes 8 each side Comments cues for max protraction and thoracic rotation Sitting Exercises side to side Sitting Exercise Name side to side Side bilateral Reps/Minutes 10 each side Comments cues for upright trunk, modeling for supinated forearm floor to ceiling Sitting Exercise Name floor to ceiling Side bilateral Reps/Minutes 8 Comments cues for big hands, crisp movement Standing Exercises sideways step Standing Exercise Name sideways step Side bilateral Reps/Minutes 10 each side Comments cues for rotation, big arms front and back forward step Standing Exercise Name forward step Side bilateral Equipment Used pool noodle to encourage big step Reps/Minutes 10 each side Comments cues for big step back to center Other Exercises sideways rock and reach Other Exercise Name sideways rock and reach Side bilateral Reps/Minutes 10 each side Comments improved back foot pivot forward rock and reach Other Exercise Name forward rock and reach Side bilateral Reps/Minutes 10 each side Comments cues for equal arm swing backward step Other Exercise Name backward step Side bilateral Equipment Used chair for UE support Reps/Minutes 10 each side Comments cues for weight shift Therapeutic Activity Therapeutic Activity floor recovery Name floor recovery Reps/Minutes 5 minutes Comments Pt demonstrated technique for getting off the floor, including rolling to prone, getting up to tall kneeling, and getting one leg underneath for half kneeling to standing . He did not need to use a chair for support. STS, Walking over obstacles Name STS Reps/Minutes 2x5 reps Comments 1st set 17 mat; 2nd set 16 mat; both with cues for bigger forward lean on return to sit Gait Training Gait Activity hurdles Description hurdles Level of Assistance SBA Surface carpet Distance/Duration 6 hurdles x 10 Treatment Focus posture, arm swing Comments Focused on maintaining upright posture and arm swing during tiffany navigation. Gait mechanics Description BIG walking Level of Assistance SBA Surface level, tile and carpet Distance/Duration 10 minutes Treatment Focus foot clearance, arm swing Comments Introduced conversational distraction while walking through main floor of hospital . Pt was unable to maintain big arm swing with minimal distraction. Pt also ascended and descended 28 steps step over step without use of railing. PT-OP-T Assessment and Plan Start: 07/13/19 13:49 Freq: Status: Active Protocol: Document 07/15/19 12:07 AW (Rec: 07/15/19 12:22 AW [email or web address]) Physical Therapy Assessment Impairments Impairments Activity Tolerance,Balance, Coordination,Functional Activities,Functional Mobility ,Gait,ROM Goals Three Impairment Balance and ROM Short Term Goal (STG) Patient will complete HEP of doing LSVT BIG program exercises 2x/day during the next 4 weeks to help increase ROM during ADL's and increase balance activities to decrease fall risk. STG Duration 4 weeks Two Impairment Gait Short Term Goal (STG) Patient will be able to increase amplitude of movement of L arm swing when walking to be equal to R arm swing when walking for duration of 6 minutes within 2 weeks. STG Duration 2 weeks Hollow Ware Maker Goal (LTG) Patient will be able to maintain amplitude of movement in both arms and legs as well as keep fingers extended during duration of 6 minute walk without cueing in 4 weeks . LTG Duration 4 weeks One Impairment Functional Activity Short Term Goal (STG) Patient will be able to bend down and picking machine operator helper an object that is one foot from the ground with out getting down on one knee in 2 weeks. STG Duration 2 weeks Skilled Nursing Goal (LTG) Patient will be able to bend down and picking machine operator helper golf ball with correct mechanics without getting down on one knee in 4 weeks. LTG Duration 4 weeks Assessment Summary Assessment Jacques states he did the daily exercises at home but had questions about some of them. Reviewed and answered all questions. Jacques notes that endurance is one of his biggest challenges and he does become winded during exercises and gait training. He will benefit from a focus on activity tolerance in addition to amplitude during this plan of care. Physical Therapy Plan Frequency and Duration Frequency of Treatment 4x/Week Duration of Treatment 4 weeks Plan of Care Start Date 07/13/19 Plan of Care End Date 08/14/19 Next Visit Focus/Plan Next Note Type Treatment Note Next Visit Plan - MDS-UPDRS part III Motor examination - initiate functional task training
--- NOTE | 2019-07-16 15:28 | PT.OTN ---
Current Diagnoses Parkinson's disease (07/16/19) Tremor, unspecified (07/16/19) Unspecified abnormalities of gait and mobility (07/16/19) Physical Therapy Treatment Note PT-OP-A Visit Information Start: 07/13/19 13:49 Freq: Status: Active Protocol: Document 07/16/19 12:53 EG (Rec: 07/16/19 15:13 EG [email or web address]) Out-Patient Physical Therapy Visit Information Visit Information Visit Type Treatment Note Visit Note 10/07 BIG Program treatment Visit Start Time 11:00 Visit Stop Time 12:00 Total Visit Minutes 60 Visit Number 4 Number of JAVA WEB ARCHITECT Visits 0 PT-OP-B Current Condition Start: 07/13/19 13:49 Freq: Status: Active Protocol: Document 07/13/19 14:16 EG (Rec: 07/13/19 15:44 EG [email or web address]) Current Condition History of Current Condition Onset Date 03/2019 Current Complaints Tremor in L hand History of Current Condition Patient is an 83 year old male who presents to Physical Therapy after a referral from Neurologist after recently being diagnosed with Parkinson 's Disease. Patient currently went to MD/Neurologist after children recognized tremor in L hand in March. He was put on Levadopa at this time and has been taking it ever since. The patient has noticed little results from the medication. The patient has not had any complaints of balance and has not had any falls within the last year. The biggest complaint the patient has in a lack of being limber and has recognized that it is harder for him to pick things up off the floor without getting down on one knee. Patient does not exercise often if at all. Patient also states that when he is doing activities at home , he can control the tremor in his L hand and that it only occurs during rest. Patient currently lives with and 2 dogs, is driving, and independent in all activities. Patient has had history of back pain and shoulder pain which has been relieved after drinking more water and going to physical therapy. Patient denies any problems with swallowing, pneumonia, past falls, or freezing. Prior Treatments and Tests Seen neurologist for medication for Parkinson Disease. 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 Future Testing and Treatments Planned Continue to see neurologist. Treatment Goals Patient/Caregiver Goals Patient would like to be able to get more limber. 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 Baseline Function- Recreation/Hobbies Golf, drive RV [place] and go camping, quality time with family, babysit grandchildren Current Functional Impairments (Reported) Functional Limitations- ADL's None Functional Limitations- Mobility/Gait None Functional Limitations- Work/School None Functional Limitations- Recreation/ Bending over to get golf ball Hobbies or pick things up from the ground Personal Factors Other Personal Factors That May Effect High Cholesterol, Motivation Therapy/Recovery to finish, Back Pain PT-OP-C Subjective Start: 07/13/19 13:49 Freq: Status: Active Protocol: Document 07/16/19 12:53 EG (Rec: 07/16/19 13:01 EG [email or web address]) OP-PT Subjective Patient Comments Patient Comments Patient stated that he has been feeling the stretch in his legs and especially in the back of the L leg. He thinks it is because of the stretches . Patient also stated that he is still trying to figure out the exercises at home without looking at the sheet and he gets confused with the forward rocking exercise. Patient also stated that he likes practicing standing up and even had his practice with him at home. PT-OP-D Balance Start: 07/13/19 13:49 Freq: Status: Active Protocol: Document 07/13/19 14:16 EG (Rec: 07/13/19 15:44 EG [email or web address]) OP-PT Balance Assessment Sitting Balance Static Sitting Balance Ability Normal Dynamic Sitting Balance Ability Normal Standing Balance Static Standing Balance Ability Normal Dynamic Standing Balance Ability Normal Liu Fall Scale Copyright Permission PT-OP-E Functional Tests Start: 07/13/19 13:49 Freq: Status: Active Protocol: Document 07/13/19 14:16 EG (Rec: 07/13/19 15:44 EG [email or web address]) Functional Tests 6 Minute Walk Test Distance 1,530 feet 10 Meter Walk Test Distance 10 meter Comments normal walkin.67 m/sec fast walkin.0 m/sec Five Times Sit to Stand Test Score 18 sec, 14sec, 14 sec Comments average of 3 rounds: 15.33 sec Other Mini-BESTest Name of Test MINI-BESTest (Balance Evaluation Systems Test) Score 25/28 PT-OP-G Mobility & Gait Start: 07/13/19 13:49 Freq: Status: Active Protocol: Document 07/13/19 14:16 EG (Rec: 07/13/19 15:44 EG [email or web address]) OP Gait Assessment Gait Gait Assistance Required: Independent Gait Deviations General Gait Pattern Within Normal Limits Comments Gait Comments Decreased swing on L side with hiked R shoulder. Decreased step height with increased endurance training during ambulation. L foot caught on ground with min LOB that was recovered with no help from PT at around min 5:40 during 6- MWT. PT-OP-J Posture/Palpation/Skin Start: 07/13/19 13:49 Freq: Status: Active Protocol: Document 07/13/19 14:16 EG (Rec: 07/13/19 15:44 EG [email or web address]) Posture Evaluation Position Sitting Evaluation View Anterior Head/C-Spine Posture Flexed T-Spine Posture Increased Kyphosis Shoulder Posture (L) Rounded,(R) Rounded,(R) Elevated PT-OP-Q Treatments Start: 07/13/19 13:49 Freq: Status: Active Protocol: Document 07/16/19 12:53 EG (Rec: 07/16/19 13:01 EG [email or web address]) Therapeutic Exercises Sitting Exercises side to side Sitting Exercise Name side to side Side bilateral Reps/Minutes 8 each side Comments cues for upright trunk, modeling for supinated forearm floor to ceiling Sitting Exercise Name floor to ceiling Side bilateral Reps/Minutes 8 Comments cues for big hands, crisp movement Standing Exercises sideways step Standing Exercise Name sideways step Side bilateral Reps/Minutes 10 each side Comments cues for rotation, big arms front and back forward step Standing Exercise Name forward step Side bilateral Reps/Minutes 10 each side Comments cues for big step back to center Other Exercises sideways rock and reach Other Exercise Name sideways rock and reach Side bilateral Reps/Minutes 10 each side Comments improved back foot pivot; guard for balance forward rock and reach Other Exercise Name forward rock and reach Side bilateral Reps/Minutes 10 each side Comments cues for lift front toe backward step Other Exercise Name backward step Side bilateral Equipment Used chair for UE support Reps/Minutes 10 each side Comments cues for weight shift Therapeutic Activity Therapeutic Activity Picking up object from ground Name Bending over and picking up cones from ground Reps/Minutes 6 minutes Comments Practice picking up 5 cones positioned straight up with both hands independently with an increase of amplitude as he came up lifting cone over head. Did this once on each side. Then put cones flat on ground so distance of bending over was increased. Need verbal and visual cues to bend over with good form and with safety. STS, Walking over obstacles Name STS Reps/Minutes 2x8 reps Comments cues for bigger forward lean on return to sit Gait Training Gait Activity Gait mechanics Description BIG walking Level of Assistance SBA Surface level, tile and carpet Distance/Duration 10 minutes Treatment Focus foot clearance, arm swing, L hand activation Comments Patient walked at a steady fast pace but did have 3 issues of scuffing L foot on the ground resulting in LOB with independent recovery. Patient maintained big hands but does have issues lifting left foot when he gets tired. PT-OP-T Assessment and Plan Start: 07/13/19 13:49 Freq: Status: Active Protocol: Document 07/16/19 12:53 EG (Rec: 07/16/19 15:13 EG [email or web address]) Physical Therapy Assessment Assessment Summary Assessment Frankie did well with exercises today and expressed interest in sit to stand due to it's functional component at home. He did well with picking things up off the ground and was able to do it with amplitude as he broght the cone over head. He needs cues on how to properly squat without placing knees over toes and maintaining balance in this proper form. He felt pain in low back after doing these exercises and further training should be done with this. Frankie does walk at an increased amplitude which causes him to get distracted and less cautious about his L foot during gait. Patient should continue to work on amplitude of movement with slower controlled movements to focus on safety and stability . Physical Therapy Plan Next Visit Focus/Plan Next Visit Plan Follow up with patient regarding Neurologist appointment. See how painting with big stretches went. - practice stepping on to an object to increase amplitude of movement in L leg/foot when walking to avoid tripping. - continue to practice bending over and picking objects up off the floor. Agatha Ferreira DPT, supervised all treatment performed by, and agreed with the plan of care, as performed by Sunshine Zarate, MAIRA.
--- NOTE | 2019-07-20 13:16 | PT.OTN ---
Current Diagnoses Parkinson's disease (07/20/19) Tremor, unspecified (07/20/19) Unspecified abnormalities of gait and mobility (07/20/19) Physical Therapy Treatment Note PT-OP-A Visit Information Start: 07/13/19 13:49 Freq: Status: Active Protocol: Document 07/20/19 12:55 AW (Rec: 07/20/19 13:16 AW [id number]) Out-Patient Physical Therapy Visit Information Visit Information Visit Type Treatment Note Visit Note 11/06 BIG Program treatment Visit Start Time 11:00 Visit Stop Time 12:00 Total Visit Minutes 60 Visit Number 5 Number of PHOTO BOOTH OPERATOR Visits 0 Evaluation Information Evaluation Date 07/13/19 PT-OP-B Current Condition Start: 07/13/19 13:49 Freq: Status: Active Protocol: Document 07/13/19 14:16 EG (Rec: 07/13/19 15:44 EG [email or web address]) Current Condition History of Current Condition Onset Date 03/2019 Current Complaints Tremor in L hand History of Current Condition Patient is an 83 year old male who presents to Physical Therapy after a referral from Neurologist after recently being diagnosed with Parkinson 's Disease. Patient currently went to MD/Neurologist after children recognized tremor in L hand in March. He was put on Levadopa at this time and has been taking it ever since. The patient has noticed little results from the medication. The patient has not had any complaints of balance and has not had any falls within the last year. The biggest complaint the patient has in a lack of being limber and has recognized that it is harder for him to pick things up off the floor without getting down on one knee. Patient does not exercise often if at all. Patient also states that when he is doing activities at home , he can control the tremor in his L hand and that it only occurs during rest. Patient currently lives with and 2 dogs, is driving, and independent in all activities. Patient has had history of back pain and shoulder pain which has been relieved after drinking more water and going to physical therapy. Patient denies any problems with swallowing, pneumonia, past falls, or freezing. Prior Treatments and Tests Seen neurologist for medication for Parkinson Disease. Seen SUPERVISOR FINAL but did not need to focus on loud training . Future Testing and Treatments Planned Continue to see neurologist. Treatment Goals Patient/Caregiver Goals Patient would like to be able to get more limber. 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 Baseline Function- Recreation/Hobbies Golf, [place] and go [place], quality time with family, babysit grandchildren Current Functional Impairments (Reported) Functional Limitations- ADL's None Functional Limitations- Mobility/Gait None Functional Limitations- Work/School None Functional Limitations- Recreation/ Bending over to get golf ball Hobbies or pick things up from the ground Personal Factors Other Personal Factors That May Effect High Cholesterol, Motivation Therapy/Recovery to finish, Back Pain PT-OP-C Subjective Start: 07/13/19 13:49 Freq: Status: Active Protocol: Document 07/20/19 12:55 AW (Rec: 07/20/19 13:16 AW [id number]) OP-PT Subjective Patient Comments Patient Comments Jacques has been keeping up with his daily exercises twice/day while out of the clinic. He continues to have questions about a few of them, but reports good effort and intensity. Patient Reported Progress Improving PT-OP-D Balance Start: 07/13/19 13:49 Freq: Status: Active Protocol: Document 07/13/19 14:16 EG (Rec: 07/13/19 15:44 EG [email or web address]) OP-PT Balance Assessment Sitting Balance Static Sitting Balance Ability Normal Dynamic Sitting Balance Ability Normal Standing Balance Static Standing Balance Ability Normal Dynamic Standing Balance Ability Normal Liu Fall Scale Copyright Permission PT-OP-E Functional Tests Start: 07/13/19 13:49 Freq: Status: Active Protocol: Document 07/13/19 14:16 EG (Rec: 07/13/19 15:44 EG [email or web address]) Functional Tests 6 Minute Walk Test Distance 1,530 feet 10 Meter Walk Test Distance 10 meter Comments normal walkin.67 m/sec fast walkin.0 m/sec Five Times Sit to Stand Test Score 18 sec, 14sec, 14 sec Comments average of 3 rounds: 15.33 sec Other Mini-BESTest Name of Test MINI-BESTest (Balance Evaluation Systems Test) Score 25/28 PT-OP-G Mobility & Gait Start: 07/13/19 13:49 Freq: Status: Active Protocol: Document 07/13/19 14:16 EG (Rec: 07/13/19 15:44 EG [email or web address]) OP Gait Assessment Gait Gait Assistance Required: Independent Gait Deviations General Gait Pattern Within Normal Limits Comments Gait Comments Decreased swing on L side with hiked R shoulder. Decreased step height with increased endurance training during ambulation. L foot caught on ground with min LOB that was recovered with no help from PT at around min 5:40 during 6- MWT. PT-OP-J Posture/Palpation/Skin Start: 07/13/19 13:49 Freq: Status: Active Protocol: Document 07/13/19 14:16 EG (Rec: 07/13/19 15:44 EG [email or web address]) Posture Evaluation Position Sitting Evaluation View Anterior Head/C-Spine Posture Flexed T-Spine Posture Increased Kyphosis Shoulder Posture (L) Rounded,(R) Rounded,(R) Elevated PT-OP-Q Treatments Start: 07/13/19 13:49 Freq: Status: Active Protocol: Document 07/20/19 12:55 AW (Rec: 07/20/19 13:16 AW [id number]) Therapeutic Exercises Sitting Exercises side to side Sitting Exercise Name side to side Side bilateral Reps/Minutes 8 each side Comments improved self-correction of posture floor to ceiling Sitting Exercise Name floor to ceiling Side bilateral Reps/Minutes 8 Comments cues for big hands, crisp movement Standing Exercises step up on to bosu Standing Exercise Name step up on to bosu Side bilateral Reps/Minutes 10 each side Comments focus on increasing foot clearance sideways step Standing Exercise Name sideways step Side bilateral Reps/Minutes 10 each side Comments cues for head rotation forward step Standing Exercise Name forward step Side bilateral Reps/Minutes 20 alternating Comments cues for big step back to center Other Exercises sideways rock and reach Other Exercise Name sideways rock and reach Side bilateral Reps/Minutes 10 each side Comments improved back foot pivot; improved balance forward rock and reach Other Exercise Name forward rock and reach Side bilateral Reps/Minutes 10 each side Comments cues for lift front toe backward step Other Exercise Name backward step Side bilateral Equipment Used chair for UE support Reps/Minutes 10 each side Comments improved weight shifting Therapeutic Activity Therapeutic Activity Picking up object from ground Name Bending over and picking up cones from ground Reps/Minutes 5 minutes Comments With cones standing and then on side. Required demonstration and cues for hip hinge, posterior chain emphasis. Knees tend to drift inward; cued for forward knee translation. STS, Walking over obstacles Name STS Reps/Minutes 3x8 reps Comments From large black mat table in lowest position. Last 2 sets completed with 2 blue foam under feet during which pt required cues for bigger forward reach on descent in order to improve eccentric control. Gait Training Gait Activity figure 8 Description figure 8 Level of Assistance SBA Surface carpet Distance/Duration 5 minutes Treatment Focus foot clearance, arm swing, turns Comments Pt completed figure 8's walking around two bolsters set upright on carpet. He required verbal cues for arm swing first several times through. Then combined figure 8's with gait training level surface, completing 2 figure 8 's for every lap around the gym. Pt was better able to maintain arm swing once pattern was established during level surface gait hurdles Description hurdles with foam, river rock Level of Assistance SBA Surface carpet Distance/Duration 6 hurdles x 10 Treatment Focus posture, arm swing Comments Foam pads and river rocks placed between hurdles to simulate uneven surface. Focused on maintaining upright posture and arm swing. Gait mechanics Description BIG walking Level of Assistance SBA Surface level - tile and carpet; outdoor - asphalt, grass, gravel, inclines Distance/Duration 15 minutes Treatment Focus foot clearance, arm swing, L hand activation Comments No audible foot scuff during gait training today. Pt reports he was more aware of foot clearance and is thinking big. Pt was able to navigate outdoor terrain while maintaining arm swing. PT-OP-T Assessment and Plan Start: 07/13/19 13:49 Freq: Status: Active Protocol: Document 07/20/19 12:55 AW (Rec: 07/20/19 13:16 AW [id number]) Physical Therapy Assessment Impairments Impairments Activity Tolerance,Balance, Coordination,Functional Activities,Functional Mobility ,Gait,ROM Goals Three Impairment Balance and ROM Short Term Goal (STG) Patient will complete HEP of doing LSVT BIG program exercises 2x/day during the next 4 weeks to help increase ROM during ADL's and increase balance activities to decrease fall risk. STG Duration 4 weeks Two Impairment Gait Short Term Goal (STG) Patient will be able to increase amplitude of movement of L arm swing when walking to be equal to R arm swing when walking for duration of 6 minutes within 2 weeks. STG Duration 2 weeks Alf Goal (LTG) Patient will be able to maintain amplitude of movement in both arms and legs as well as keep fingers extended during duration of 6 minute walk without cueing in 4 weeks . LTG Duration 4 weeks One Impairment Functional Activity Short Term Goal (STG) Patient will be able to bend down and pickling solution maker an object that is one foot from the ground with out getting down on one knee in 2 weeks. STG Duration 2 weeks Media Sales Consultant Goal (LTG) Patient will be able to bend down and pickling solution maker golf ball with correct mechanics without getting down on one knee in 4 weeks. LTG Duration 4 weeks Assessment Summary Assessment Jacques tolerated increased time in gait training today, including introduction of outdoor surfaces and tight turns. He continues to require occasional verbal cueing to think big for improved arm swing, but is correcting his own form more frequently with fewer cues. Will continue to work on amplitude and endurance. Jacques reports neurologist agreed with scaling back his medication dosage to see if there is any difference. He will begin taking 2 pills at 0600, 1 pill at 1400, and 2 pills at 2200. Physical Therapy Plan Frequency and Duration Frequency of Treatment 4x/Week Duration of Treatment 4 weeks Plan of Care Start Date 07/13/19 Plan of Care End Date 08/14/19 Next Visit Focus/Plan Next Note Type Treatment Note Next Visit Plan Follow up regarding change in medication dosage. Continue per plan of care with amplitude-based treatment and focus on endurance. Introduce more functional activities.
--- NOTE | 2019-07-21 12:14 | PT.OTN ---
Current Diagnoses Parkinson's disease (07/21/19) Tremor, unspecified (07/21/19) Unspecified abnormalities of gait and mobility (07/21/19) Physical Therapy Treatment Note PT-OP-A Visit Information Start: 07/13/19 13:49 Freq: Status: Active Protocol: Document 07/21/19 11:57 AW (Rec: 07/21/19 12:14 AW [email or web address]) Out-Patient Physical Therapy Visit Information Visit Information Visit Type Treatment Note Visit Note 12/07 BIG Program treatment Visit Start Time 10:59 Visit Stop Time 11:54 Total Visit Minutes 55 Visit Number 6 Number of WATCH ADJUSTER Visits 0 Evaluation Information Evaluation Date 07/13/19 PT-OP-B Current Condition Start: 07/13/19 13:49 Freq: Status: Active Protocol: Document 07/13/19 14:16 EG (Rec: 07/13/19 15:44 EG [email or web address]) Current Condition History of Current Condition Onset Date 03/2019 Current Complaints Tremor in L hand History of Current Condition Patient is an 83 year old male who presents to Physical Therapy after a referral from Neurologist after recently being diagnosed with Parkinson 's Disease. Patient currently went to MD/Neurologist after children recognized tremor in L hand in March. He was put on Levadopa at this time and has been taking it ever since. The patient has noticed little results from the medication. The patient has not had any complaints of balance and has not had any falls within the last year. The biggest complaint the patient has in a lack of being limber and has recognized that it is harder for him to pick things up off the floor without getting down on one knee. Patient does not exercise often if at all. Patient also states that when he is doing activities at home , he can control the tremor in his L hand and that it only occurs during rest. Patient currently lives with and 2 dogs, is driving, and independent in all activities. Patient has had history of back pain and shoulder pain which has been relieved after drinking more water and going to physical therapy. Patient denies any problems with swallowing, pneumonia, past falls, or freezing. Prior Treatments and Tests Seen neurologist for medication for Parkinson Disease. Seen SPUD DRILLER but did not need to focus on loud training . Future Testing and Treatments Planned Continue to see neurologist. Treatment Goals Patient/Caregiver Goals Patient would like to be able to get more limber. 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 Baseline Function- Recreation/Hobbies Golf, drive [place] and go [place], quality time with family, babysit grandchildren Current Functional Impairments (Reported) Functional Limitations- ADL's None Functional Limitations- Mobility/Gait None Functional Limitations- Work/School None Functional Limitations- Recreation/ Bending over to get golf ball Hobbies or pick things up from the ground Personal Factors Other Personal Factors That May Effect High Cholesterol, Motivation Therapy/Recovery to finish, Back Pain PT-OP-C Subjective Start: 07/13/19 13:49 Freq: Status: Active Protocol: Document 07/21/19 11:57 AW (Rec: 07/21/19 12:14 AW [email or web address]) OP-PT Subjective Patient Comments Patient Comments Jacques is feeling sore in his back but is able to distinguish the soreness from pain. Yesterday, he started to reduce his medication dosing. He states he thinks he is sleeping better since starting BIG. PT-OP-D Balance Start: 07/13/19 13:49 Freq: Status: Active Protocol: Document 07/13/19 14:16 EG (Rec: 07/13/19 15:44 EG [email or web address]) OP-PT Balance Assessment Sitting Balance Static Sitting Balance Ability Normal Dynamic Sitting Balance Ability Normal Standing Balance Static Standing Balance Ability Normal Dynamic Standing Balance Ability Normal Liu Fall Scale Copyright Permission PT-OP-E Functional Tests Start: 07/13/19 13:49 Freq: Status: Active Protocol: Document 07/13/19 14:16 EG (Rec: 07/13/19 15:44 EG [email or web address]) Functional Tests 6 Minute Walk Test Distance 1,530 feet 10 Meter Walk Test Distance 10 meter Comments normal walkin.67 m/sec fast walkin.0 m/sec Five Times Sit to Stand Test Score 18 sec, 14sec, 14 sec Comments average of 3 rounds: 15.33 sec Other Mini-BESTest Name of Test MINI-BESTest (Balance Evaluation Systems Test) Score 25/28 PT-OP-G Mobility & Gait Start: 07/13/19 13:49 Freq: Status: Active Protocol: Document 07/13/19 14:16 EG (Rec: 07/13/19 15:44 EG [email or web address]) OP Gait Assessment Gait Gait Assistance Required: Independent Gait Deviations General Gait Pattern Within Normal Limits Comments Gait Comments Decreased swing on L side with hiked R shoulder. Decreased step height with increased endurance training during ambulation. L foot caught on ground with min LOB that was recovered with no help from PT at around min 5:40 during 6- MWT. PT-OP-J Posture/Palpation/Skin Start: 07/13/19 13:49 Freq: Status: Active Protocol: Document 07/13/19 14:16 EG (Rec: 07/13/19 15:44 EG [email or web address]) Posture Evaluation Position Sitting Evaluation View Anterior Head/C-Spine Posture Flexed T-Spine Posture Increased Kyphosis Shoulder Posture (L) Rounded,(R) Rounded,(R) Elevated PT-OP-Q Treatments Start: 07/13/19 13:49 Freq: Status: Active Protocol: Document 07/21/19 11:57 AW (Rec: 07/21/19 12:14 AW [email or web address]) Therapeutic Exercises Sitting Exercises side to side Sitting Exercise Name side to side Side bilateral Reps/Minutes 10 each side Comments cramp in posterior thigh when kicking back the right leg; reduced excursion floor to ceiling Sitting Exercise Name floor to ceiling Side bilateral Reps/Minutes 10 Comments cues for big hands, crisp movement Standing Exercises step up on to bosu Standing Exercise Name step up on to bosu Side bilateral Equipment Used single rail for fingertip support Reps/Minutes 10 each side Comments focus on increasing foot clearance sideways step Standing Exercise Name sideways step Side bilateral Equipment Used yoga mat Reps/Minutes 20, alternating sides Comments improved uncued rotation forward step Standing Exercise Name forward step Side bilateral Equipment Used yoga mat Reps/Minutes 20, alternating sides Comments improved uncued foot clearance Other Exercises sideways rock and reach Other Exercise Name sideways rock and reach Side bilateral Reps/Minutes 10 each side Comments reduced need for demonstration forward rock and reach Other Exercise Name forward rock and reach Side bilateral Reps/Minutes 10 each side Comments cues for lift front toe backward step Other Exercise Name backward step Side bilateral Equipment Used chair for UE support Reps/Minutes 10 each side Comments improved weight shifting, but continues to require cues/demo Therapeutic Activity Therapeutic Activity Picking up object from ground Name Bending over and picking up cones from ground Reps/Minutes 5 minutes Comments With cones standing and then on side. Used level 2 TB around knees for lateral hip activation and to reduce inward knee drift. Cues for hip hinge, posterior chain emphasis, drive through heels to stand. STS, Walking over obstacles Name STS Reps/Minutes 5x5 reps Comments From large black mat table in lowest position. 1st set with 2 blue foam under feet. 2nd and 3rd set with wobble board oriented A/P. 4th set with wobble board oriented laterally. Final set from deep chair by documentation space with pt able to stand without need to scoot forward first. Gait Training Gait Activity figure 8 Description figure 8 Level of Assistance SBA Surface carpet Distance/Duration 5 minutes Treatment Focus foot clearance, arm swing, turns Comments Pt completed figure 8's walking around two bolsters set upright on carpet. Combined figure 8's with gait training level surface, completing 2 figure 8's for every lap around the gym. Pt was better able to maintain arm swing once pattern was established during level surface gait. hurdles Description hurdles with foam, river rock, 6 step Level of Assistance SBA Surface carpet Distance/Duration 6 hurdles x 15 Treatment Focus posture, arm swing Comments Foam pads, river rock, and 6 step placed between hurdles to simulate uneven surface. Focused on maintaining upright posture and arm swing. Gait mechanics Description BIG walking Level of Assistance SBA Surface level - tile and carpet; outdoor - asphalt, grass, gravel, inclines Distance/Duration 15 minutes Treatment Focus foot clearance, arm swing, L hand activation Comments Pt with improved foot clearance bilaterally, no audible foot scuff. PT-OP-T Assessment and Plan Start: 07/13/19 13:49 Freq: Status: Active Protocol: Document 07/21/19 11:57 AW (Rec: 07/21/19 12:14 AW [email or web address]) Physical Therapy Assessment Impairments Impairments Activity Tolerance,Balance, Coordination,Functional Activities,Functional Mobility ,Gait,ROM Goals Three Impairment Balance and ROM Short Term Goal (STG) Patient will complete HEP of doing LSVT BIG program exercises 2x/day during the next 4 weeks to help increase ROM during ADL's and increase balance activities to decrease fall risk. STG Duration 4 weeks Two Impairment Gait Short Term Goal (STG) Patient will be able to increase amplitude of movement of L arm swing when walking to be equal to R arm swing when walking for duration of 6 minutes within 2 weeks. STG Duration 2 weeks Half-Way Goal (LTG) Patient will be able to maintain amplitude of movement in both arms and legs as well as keep fingers extended during duration of 6 minute walk without cueing in 4 weeks . LTG Duration 4 weeks One Impairment Functional Activity Short Term Goal (STG) Patient will be able to bend down and car pick up driver an object that is one foot from the ground with out getting down on one knee in 2 weeks. STG Duration 2 weeks Half-Way Goal (LTG) Patient will be able to bend down and car pick up driver golf ball with correct mechanics without getting down on one knee in 4 weeks. LTG Duration 4 weeks Assessment Summary Assessment Jacques reports improved sleep since becoming more active with BIG program. He shows good effort with all activity and demostrates improved amplitude, especially with arm swing and foot clearance, requiring fewer cues. There is room to improve, however, when Jacques is distracted by environmental chatter or conversation. Physical Therapy Plan Frequency and Duration Frequency of Treatment 4x/Week Duration of Treatment 4 weeks Plan of Care Start Date 07/13/19 Plan of Care End Date 08/14/19 Next Visit Focus/Plan Next Note Type Treatment Note Next Visit Plan Follow up regarding change in medication dosage. Continue per plan of care with amplitude-based treatment and focus on endurance. Introduce more functional activities.
--- NOTE | 2019-07-22 12:15 | PT.OTN ---
Current Diagnoses Parkinson's disease (07/22/19) Tremor, unspecified (07/22/19) Unspecified abnormalities of gait and mobility (07/22/19) Physical Therapy Treatment Note PT-OP-A Visit Information Start: 07/13/19 13:49 Freq: Status: Active Protocol: Document 07/22/19 11:56 AW (Rec: 07/22/19 12:14 AW [id number]) Out-Patient Physical Therapy Visit Information Visit Information Visit Type Treatment Note Visit Note 01/06 BIG Program treatment Visit Start Time 11:00 Visit Stop Time 11:55 Total Visit Minutes 55 Visit Number 7 Number of PLANT ATTENDANT Visits 0 Evaluation Information Evaluation Date 07/13/19 PT-OP-B Current Condition Start: 07/13/19 13:49 Freq: Status: Active Protocol: Document 07/13/19 14:16 EG (Rec: 07/13/19 15:44 EG [email or web address]) Current Condition History of Current Condition Onset Date 03/2019 Current Complaints Tremor in L hand History of Current Condition Patient is an 83 year old male who presents to Physical Therapy after a referral from Neurologist after recently being diagnosed with Parkinson 's Disease. Patient currently went to MD/Neurologist after children recognized tremor in L hand in March. He was put on Levadopa at this time and has been taking it ever since. The patient has noticed little results from the medication. The patient has not had any complaints of balance and has not had any falls within the last year. The biggest complaint the patient has in a lack of being limber and has recognized that it is harder for him to pick things up off the floor without getting down on one knee. Patient does not exercise often if at all. Patient also states that when he is doing activities at home , he can control the tremor in his L hand and that it only occurs during rest. Patient currently lives with and 2 dogs, is driving, and independent in all activities. Patient has had history of back pain and shoulder pain which has been relieved after drinking more water and going to physical therapy. Patient denies any problems with swallowing, pneumonia, past falls, or freezing. Prior Treatments and Tests Seen neurologist for medication for Parkinson Disease. Seen INDUSTRIAL SEWER but did not need to focus on loud training . Future Testing and Treatments Planned Continue to see neurologist. Treatment Goals Patient/Caregiver Goals Patient would like to be able to get more limber. 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 Baseline Function- Recreation/Hobbies Golf, drive RV [place] and go camping, quality time with family, babysit grandchildren Current Functional Impairments (Reported) Functional Limitations- ADL's None Functional Limitations- Mobility/Gait None Functional Limitations- Work/School None Functional Limitations- Recreation/ Bending over to get golf ball Hobbies or pick things up from the ground Personal Factors Other Personal Factors That May Effect High Cholesterol, Motivation Therapy/Recovery to finish, Back Pain PT-OP-C Subjective Start: 07/13/19 13:49 Freq: Status: Active Protocol: Document 07/22/19 11:56 AW (Rec: 07/22/19 12:14 AW [id number]) OP-PT Subjective Patient Comments Patient Comments Jacques realized he has not been doing his low back stretches so will begin to incorporate those again. Patient Reported Progress Improving PT-OP-D Balance Start: 07/13/19 13:49 Freq: Status: Active Protocol: Document 07/13/19 14:16 EG (Rec: 07/13/19 15:44 EG [email or web address]) OP-PT Balance Assessment Sitting Balance Static Sitting Balance Ability Normal Dynamic Sitting Balance Ability Normal Standing Balance Static Standing Balance Ability Normal Dynamic Standing Balance Ability Normal Liu Fall Scale Copyright Permission PT-OP-E Functional Tests Start: 07/13/19 13:49 Freq: Status: Active Protocol: Document 07/13/19 14:16 EG (Rec: 07/13/19 15:44 EG [email or web address]) Functional Tests 6 Minute Walk Test Distance 1,530 feet 10 Meter Walk Test Distance 10 meter Comments normal walkin.67 m/sec fast walkin.0 m/sec Five Times Sit to Stand Test Score 18 sec, 14sec, 14 sec Comments average of 3 rounds: 15.33 sec Other Mini-BESTest Name of Test MINI-BESTest (Balance Evaluation Systems Test) Score 25/28 PT-OP-G Mobility & Gait Start: 07/13/19 13:49 Freq: Status: Active Protocol: Document 07/13/19 14:16 EG (Rec: 07/13/19 15:44 EG [email or web address]) OP Gait Assessment Gait Gait Assistance Required: Independent Gait Deviations General Gait Pattern Within Normal Limits Comments Gait Comments Decreased swing on L side with hiked R shoulder. Decreased step height with increased endurance training during ambulation. L foot caught on ground with min LOB that was recovered with no help from PT at around min 5:40 during 6- MWT. PT-OP-J Posture/Palpation/Skin Start: 07/13/19 13:49 Freq: Status: Active Protocol: Document 07/13/19 14:16 EG (Rec: 07/13/19 15:44 EG [email or web address]) Posture Evaluation Position Sitting Evaluation View Anterior Head/C-Spine Posture Flexed T-Spine Posture Increased Kyphosis Shoulder Posture (L) Rounded,(R) Rounded,(R) Elevated PT-OP-Q Treatments Start: 07/13/19 13:49 Freq: Status: Active Protocol: Document 07/22/19 11:56 AW (Rec: 07/22/19 12:14 AW [id number]) Therapeutic Exercises Sitting Exercises side to side Sitting Exercise Name side to side Side bilateral Resistance 1# wrist weights Reps/Minutes 10 each side Comments occ cues for upright trunk floor to ceiling Sitting Exercise Name floor to ceiling Side bilateral Resistance 1# wrist weights Reps/Minutes 10 Comments cues for big hands, crisp movement Standing Exercises sideways step Standing Exercise Name sideways step Side bilateral Resistance 1# wrist weights Equipment Used 2 gym mat Reps/Minutes 20, alternating sides Comments improved uncued rotation forward step Standing Exercise Name forward step Side bilateral Resistance 1# wrist weights Equipment Used 2 gym mat Reps/Minutes 30, alternating sides Comments improved uncued foot clearance Other Exercises sideways rock and reach Other Exercise Name sideways rock and reach Side bilateral Resistance 1# wrist weights Reps/Minutes 10 each side Comments reduced need for demonstration forward rock and reach Other Exercise Name forward rock and reach Side bilateral Resistance 1# wrist weights Reps/Minutes 15 each side Comments cues for lift front toe backward step Other Exercise Name backward step Side bilateral Resistance 1# wrist weights Equipment Used with and without chair for UE support Reps/Minutes 15 each side Comments assessed without UE support; improved when decreasing length of step Therapeutic Activity Therapeutic Activity Picking up object from ground Name Bending over and picking up cones from ground Reps/Minutes 5 minutes Comments With 1# dumbbells on side and 2# dumbbells standing up. Used level 2 TB around knees to reduce inward knee drift. Cues for hip hinge, posterior chain emphasis, drive through heels to stand. STS, Walking over obstacles Name STS Reps/Minutes 5x5 reps Comments From 17 hard surface chair. 1st set with feet on floor. Next two sets with wobble board oriented A/P. Last two set with wobble board oriented laterally. Gait Training Gait Activity sport cord Description fwd/bwd; sideways Device Used green cord Level of Assistance SBA Surface level, carpet Distance/Duration 5 minutes Treatment Focus foot clearance Comments single tiffany in side-stepping Gait mechanics Description BIG walking Level of Assistance SBA Surface level - tile and carpet Distance/Duration 15 minutes Treatment Focus foot clearance, arm swing, L hand activation Comments Pt with improved foot clearance bilaterally, 1 toe catch resulting in forward LOB from which pt recovered independently. PT-OP-T Assessment and Plan Start: 07/13/19 13:49 Freq: Status: Active Protocol: Document 07/22/19 11:56 AW (Rec: 07/22/19 12:14 AW [id number]) Physical Therapy Assessment Impairments Impairments Activity Tolerance,Balance, Coordination,Functional Activities,Functional Mobility ,Gait,ROM Goals Three Impairment Balance and ROM Short Term Goal (STG) Patient will complete HEP of doing LSVT BIG program exercises 2x/day during the next 4 weeks to help increase ROM during ADL's and increase balance activities to decrease fall risk. STG Duration 4 weeks Two Impairment Gait Short Term Goal (STG) Patient will be able to increase amplitude of movement of L arm swing when walking to be equal to R arm swing when walking for duration of 6 minutes within 2 weeks. STG Duration 2 weeks Help Desk Manager Goal (LTG) Patient will be able to maintain amplitude of movement in both arms and legs as well as keep fingers extended during duration of 6 minute walk without cueing in 4 weeks . LTG Duration 4 weeks One Impairment Functional Activity Short Term Goal (STG) Patient will be able to bend down and brass pickler an object that is one foot from the ground with out getting down on one knee in 2 weeks. STG Duration 2 weeks Help Desk Manager Goal (LTG) Patient will be able to bend down and brass pickler golf ball with correct mechanics without getting down on one knee in 4 weeks. LTG Duration 4 weeks Assessment Summary Assessment Jacques has improved arm swing with only minor deficit in excursion of right arm. He is tolerating increase in intensity of exercises and gait training without increase in shortness of breath. Physical Therapy Plan Frequency and Duration Frequency of Treatment 4x/Week Duration of Treatment 4 weeks Plan of Care Start Date 07/13/19 Plan of Care End Date 08/14/19 Next Visit Focus/Plan Next Note Type Treatment Note Next Visit Plan Continue per plan of care with amplitude-based treatment and focus on endurance. Introduce more functional activities.
--- NOTE | 2019-07-23 16:53 | PT.OTN ---
Current Diagnoses Parkinson's disease (07/23/19) Tremor, unspecified (07/23/19) Unspecified abnormalities of gait and mobility (07/23/19) Physical Therapy Treatment Note PT-OP-A Visit Information Start: 07/13/19 13:49 Freq: Status: Active Protocol: Document 07/23/19 15:42 EG (Rec: 07/23/19 16:00 EG [email or web address]) Out-Patient Physical Therapy Visit Information Visit Information Visit Type Treatment Note Visit Note 02/06 BIG Program treatment Visit Start Time 11:00 Visit Stop Time 12:00 Total Visit Minutes 60 Visit Number 8 Number of CORPORATE CONSULTANT Visits 0 PT-OP-B Current Condition Start: 07/13/19 13:49 Freq: Status: Active Protocol: Document 07/13/19 14:16 EG (Rec: 07/13/19 15:44 EG [email or web address]) Current Condition History of Current Condition Onset Date 03/2019 Current Complaints Tremor in L hand History of Current Condition Patient is an 83 year old male who presents to Physical Therapy after a referral from Neurologist after recently being diagnosed with Parkinson 's Disease. Patient currently went to MD/Neurologist after children recognized tremor in L hand in March. He was put on Levadopa at this time and has been taking it ever since. The patient has noticed little results from the medication. The patient has not had any complaints of balance and has not had any falls within the last year. The biggest complaint the patient has in a lack of being limber and has recognized that it is harder for him to pick things up off the floor without getting down on one knee. Patient does not exercise often if at all. Patient also states that when he is doing activities at home , he can control the tremor in his L hand and that it only occurs during rest. Patient currently lives with and 2 dogs, is driving, and independent in all activities. Patient has had history of back pain and shoulder pain which has been relieved after drinking more water and going to physical therapy. Patient denies any problems with swallowing, pneumonia, past falls, or freezing. Prior Treatments and Tests Seen neurologist for medication for Parkinson Disease. 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 Future Testing and Treatments Planned Continue to see neurologist. Treatment Goals Patient/Caregiver Goals Patient would like to be able to get more limber. 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 Baseline Function- Recreation/Hobbies Golf, drive [place] and go [place], quality time with family, babysit grandchildren Current Functional Impairments (Reported) Functional Limitations- ADL's None Functional Limitations- Mobility/Gait None Functional Limitations- Work/School None Functional Limitations- Recreation/ Bending over to get golf ball Hobbies or pick things up from the ground Personal Factors Other Personal Factors That May Effect High Cholesterol, Motivation Therapy/Recovery to finish, Back Pain PT-OP-C Subjective Start: 07/13/19 13:49 Freq: Status: Active Protocol: Document 07/23/19 15:42 EG (Rec: 07/23/19 16:00 EG [email or web address]) OP-PT Subjective Patient Comments Patient Comments Patient reported that he was doing good. He has some soreness in his low back but has been continuing to drink more water. He is also thinking about decreasing his amount of medication in the evening opposed to the morning to see if this has an effect on his symptoms. Patient Reported Progress Improving PT-OP-D Balance Start: 07/13/19 13:49 Freq: Status: Active Protocol: Document 07/13/19 14:16 EG (Rec: 07/13/19 15:44 EG [email or web address]) OP-PT Balance Assessment Sitting Balance Static Sitting Balance Ability Normal Dynamic Sitting Balance Ability Normal Standing Balance Static Standing Balance Ability Normal Dynamic Standing Balance Ability Normal Liu Fall Scale Copyright Permission PT-OP-E Functional Tests Start: 07/13/19 13:49 Freq: Status: Active Protocol: Document 07/13/19 14:16 EG (Rec: 07/13/19 15:44 EG [email or web address]) Functional Tests 6 Minute Walk Test Distance 1,530 feet 10 Meter Walk Test Distance 10 meter Comments normal walkin.67 m/sec fast walkin.0 m/sec Five Times Sit to Stand Test Score 18 sec, 14sec, 14 sec Comments average of 3 rounds: 15.33 sec Other Mini-BESTest Name of Test MINI-BESTest (Balance Evaluation Systems Test) Score 25/28 PT-OP-G Mobility & Gait Start: 07/13/19 13:49 Freq: Status: Active Protocol: Document 07/13/19 14:16 EG (Rec: 07/13/19 15:44 EG [email or web address]) OP Gait Assessment Gait Gait Assistance Required: Independent Gait Deviations General Gait Pattern Within Normal Limits Comments Gait Comments Decreased swing on L side with hiked R shoulder. Decreased step height with increased endurance training during ambulation. L foot caught on ground with min LOB that was recovered with no help from PT at around min 5:40 during 6- MWT. PT-OP-J Posture/Palpation/Skin Start: 07/13/19 13:49 Freq: Status: Active Protocol: Document 07/13/19 14:16 EG (Rec: 07/13/19 15:44 EG [email or web address]) Posture Evaluation Position Sitting Evaluation View Anterior Head/C-Spine Posture Flexed T-Spine Posture Increased Kyphosis Shoulder Posture (L) Rounded,(R) Rounded,(R) Elevated PT-OP-Q Treatments Start: 07/13/19 13:49 Freq: Status: Active Protocol: Document 07/23/19 15:42 EG (Rec: 07/23/19 16:00 EG [email or web address]) Therapeutic Exercises Sitting Exercises side to side Sitting Exercise Name side to side Side bilateral Resistance 1# wrist weights Reps/Minutes 10 each side Comments cues for reach with increased amplitude floor to ceiling Sitting Exercise Name floor to ceiling Side bilateral Resistance 1# wrist weights Reps/Minutes 10 Comments cues for big hands, crisp movement Standing Exercises sideways step Standing Exercise Name sideways step Side bilateral Resistance 1# wrist weights Equipment Used 2 gym mat Reps/Minutes 10x each side Comments improved uncued rotation forward step Standing Exercise Name forward step Side bilateral Resistance 1# wrist weights Equipment Used 2 gym mat Reps/Minutes 10x each side Comments improved uncued foot clearance Other Exercises sideways rock and reach Other Exercise Name sideways rock and reach Side bilateral Resistance 1# wrist weights Reps/Minutes 10 each side Comments cue for heel lift and to go slower forward rock and reach Other Exercise Name forward rock and reach Side bilateral Resistance 1# wrist weights Reps/Minutes 10 each side Comments cue for correct foot placement and when to lift toe and to lift heel backward step Other Exercise Name backward step Side bilateral Resistance 1# wrist weights Equipment Used no chair for UE support Reps/Minutes 10 each side Comments continued decreased step length - cue for front toe lift Therapeutic Activity Therapeutic Activity Picking up object from ground Name Bending over and picking up weight from ground Reps/Minutes 10 minutes Comments Placed 2# and 3# dumbbell on a 4 inch step. Patient grabbed each one alternately and did a pivot and reach above head with the weight. Did this on both sides. Progressed to 2.5 in surface. Progressed to the ground. Performed 6x each side total. STS, Walking over obstacles Name STS Reps/Minutes 3x10 reps Comments From large black mat table in lowest position - 1st set with feet on 2in mat. Next set with wobble board oriented A/P . Last set with wobble board oriented laterally. Gait belt on and chair next to patient. Gait Training Gait Activity Gait mechanics Description BIG walking Level of Assistance SBA Surface level - tile and carpet Distance/Duration 15 minutes Treatment Focus foot clearance, arm swing, L hand activation Comments Pt with improved foot clearance bilaterally, 2 toe catch on tile resulting in forward LOB from which pt recovered independently. PT-OP-T Assessment and Plan Start: 07/13/19 13:49 Freq: Status: Active Protocol: Document 07/23/19 15:42 EG (Rec: 07/23/19 16:00 EG [email or web address]) Physical Therapy Assessment Assessment Summary Assessment Patient tolerated treatment well today but does still need cueing for correct foot mechanics in some of the weight shift exercises. Patient does have continual scoffs of the foot when distracted and should be reminded to worm picker feet when on surfaces with higher risk. Patient is educated on no need to go too fast and instead work on good mechanics with gait. Patient should continue to work on walking through obstacles to prepare for RV trip in July and walking outside. Physical Therapy Plan Next Visit Focus/Plan Next Note Type Treatment Note Next Visit Plan Continue per plan of care with amplitude-based treatment and focus on endurance. Increase repetitions of each exercise. Introduce more functional activities involving golf and walking outside. Agatha Ferreira DPT, supervised all treatment performed by, and agreed with the plan of care, as performed by MAIRA Hills.
--- NOTE | 2019-07-27 16:12 | PT.OTN ---
Current Diagnoses Parkinson's disease (07/27/19) Tremor, unspecified (07/27/19) Unspecified abnormalities of gait and mobility (07/27/19) Physical Therapy Treatment Note PT-OP-A Visit Information Start: 07/13/19 13:49 Freq: Status: Active Protocol: Document 07/27/19 15:40 EG (Rec: 07/27/19 15:58 EG [email or web address]) Out-Patient Physical Therapy Visit Information Visit Information Visit Type Treatment Note Visit Note 03/09 BIG Program treatment Visit Start Time 11:00 Visit Stop Time 11:57 Total Visit Minutes 57 Visit Number 9 Number of ESL TUTOR Visits 0 PT-OP-B Current Condition Start: 07/13/19 13:49 Freq: Status: Active Protocol: Document 07/13/19 14:16 EG (Rec: 07/13/19 15:44 EG [email or web address]) Current Condition History of Current Condition Onset Date 03/2019 Current Complaints Tremor in L hand History of Current Condition Patient is an 83 year old male who presents to Physical Therapy after a referral from Neurologist after recently being diagnosed with Parkinson 's Disease. Patient currently went to MD/Neurologist after children recognized tremor in L hand in March. He was put on Levadopa at this time and has been taking it ever since. The patient has noticed little results from the medication. The patient has not had any complaints of balance and has not had any falls within the last year. The biggest complaint the patient has in a lack of being limber and has recognized that it is harder for him to pick things up off the floor without getting down on one knee. Patient does not exercise often if at all. Patient also states that when he is doing activities at home , he can control the tremor in his L hand and that it only occurs during rest. Patient currently lives with and 2 dogs, is driving, and independent in all activities. Patient has had history of back pain and shoulder pain which has been relieved after drinking more water and going to physical therapy. Patient denies any problems with swallowing, pneumonia, past falls, or freezing. Prior Treatments and Tests Seen neurologist for medication for Parkinson Disease. 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 Future Testing and Treatments Planned Continue to see neurologist. Treatment Goals Patient/Caregiver Goals Patient would like to be able to get more limber. 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 Baseline Function- Recreation/Hobbies Golf, drive RV down [place] and go camping, quality time with family, babysit grandchildren Current Functional Impairments (Reported) Functional Limitations- ADL's None Functional Limitations- Mobility/Gait None Functional Limitations- Work/School None Functional Limitations- Recreation/ Bending over to get golf ball Hobbies or pick things up from the ground Personal Factors Other Personal Factors That May Effect High Cholesterol, Motivation Therapy/Recovery to finish, Back Pain PT-OP-C Subjective Start: 07/13/19 13:49 Freq: Status: Active Protocol: Document 07/27/19 15:40 EG (Rec: 07/27/19 15:58 EG [email or web address]) OP-PT Subjective Patient Comments Patient Comments Patient reported that he did not do his exercises this weekend because he had guests over. He also drank more coffee this morning than usual and only took 1 of his pills this morning. he has been noticing his L hand tremor more often and doesn't know if it is because of the increased coffee intake or the decreased pill. He is going to take 2 pills in the morning again for a couple weeks and see the impact this has on him before making another change. Patient Reported Progress Improving PT-OP-D Balance Start: 07/13/19 13:49 Freq: Status: Active Protocol: Document 07/13/19 14:16 EG (Rec: 07/13/19 15:44 EG [email or web address]) OP-PT Balance Assessment Sitting Balance Static Sitting Balance Ability Normal Dynamic Sitting Balance Ability Normal Standing Balance Static Standing Balance Ability Normal Dynamic Standing Balance Ability Normal Liu Fall Scale Copyright Permission PT-OP-E Functional Tests Start: 07/13/19 13:49 Freq: Status: Active Protocol: Document 07/13/19 14:16 EG (Rec: 07/13/19 15:44 EG [email or web address]) Functional Tests 6 Minute Walk Test Distance 1,530 feet 10 Meter Walk Test Distance 10 meter Comments normal walkin.67 m/sec fast walkin.0 m/sec Five Times Sit to Stand Test Score 18 sec, 14sec, 14 sec Comments average of 3 rounds: 15.33 sec Other Mini-BESTest Name of Test MINI-BESTest (Balance Evaluation Systems Test) Score 25/28 PT-OP-G Mobility & Gait Start: 07/13/19 13:49 Freq: Status: Active Protocol: Document 07/13/19 14:16 EG (Rec: 07/13/19 15:44 EG [email or web address]) OP Gait Assessment Gait Gait Assistance Required: Independent Gait Deviations General Gait Pattern Within Normal Limits Comments Gait Comments Decreased swing on L side with hiked R shoulder. Decreased step height with increased endurance training during ambulation. L foot caught on ground with min LOB that was recovered with no help from PT at around min 5:40 during 6- MWT. PT-OP-J Posture/Palpation/Skin Start: 07/13/19 13:49 Freq: Status: Active Protocol: Document 07/13/19 14:16 EG (Rec: 07/13/19 15:44 EG [email or web address]) Posture Evaluation Position Sitting Evaluation View Anterior Head/C-Spine Posture Flexed T-Spine Posture Increased Kyphosis Shoulder Posture (L) Rounded,(R) Rounded,(R) Elevated PT-OP-Q Treatments Start: 07/13/19 13:49 Freq: Status: Active Protocol: Document 07/27/19 15:40 EG (Rec: 07/27/19 15:58 EG [email or web address]) Therapeutic Exercises Sitting Exercises side to side Sitting Exercise Name side to side Side bilateral Resistance 1# wrist weights Reps/Minutes 10 each side Comments cues for reach with increased amplitude floor to ceiling Sitting Exercise Name floor to ceiling Side bilateral Resistance 1# wrist weights Reps/Minutes 10 Comments cues for big hands, crisp movement Standing Exercises sideways step Standing Exercise Name sideways step Side bilateral Resistance 1# wrist weights Equipment Used 2 gym mat Reps/Minutes 12x each side Comments alternating sides forward step Standing Exercise Name forward step Side bilateral Resistance 1# wrist weights Equipment Used 2 gym mat Reps/Minutes 15x each side Comments Alternating steps Other Exercises sideways rock and reach Other Exercise Name sideways rock and reach Side bilateral Resistance 1# wrist weights Equipment Used 2 mat Reps/Minutes 12 each side Comments alternating sides - go slow forward rock and reach Other Exercise Name forward rock and reach Side bilateral Resistance 1# wrist weights Reps/Minutes 15 each side - alternating Comments cue to go slower. Increased awareness of toe and heel lift backward step Other Exercise Name backward step Side bilateral Resistance 1# wrist weights Equipment Used no chair for UE support Reps/Minutes 12x each side Comments continued decreased step length - cue for front toe lift Therapeutic Activity Therapeutic Activity STS, Walking over obstacles Name STS Reps/Minutes 2x12 reps Comments From large black mat table in lowest position - 1st set with feet on 2in mat with weights on hands. 2nd set holding 4 # ball and lifting overhead Gait Training Gait Activity stepping fwd/bkwd on to unstable surface Description step over tiffany on to foam pad Device Used wall railing Level of Assistance CGA Surface foam pad Treatment Focus 2x5 each side Comments step fwd and bkwd over tiffany with foam pad in the front of tiffany hurdles Description Hurdles and Foam Pad with weight in hands Level of Assistance CGA Surface carpet/foam pad Distance/Duration 15 feet x 6 Treatment Focus obstacles awareness and amplitude of movement Comments Patient would walk over obstacles and on foam pad, have to bend over and olive picker weighted ball (1#, 3.3#, 4.4#) and do obstacles again. Also did this sideways (6x) Gait mechanics Description BIG walking Level of Assistance SBA Surface level - tile and carpet Distance/Duration 15 minutes Treatment Focus foot clearance, arm swing, L hand activation Comments Pt with improved foot clearance bilaterally,No catch of toe. Decreased awareness of L hand and had an increased tremor PT-OP-T Assessment and Plan Start: 07/13/19 13:49 Freq: Status: Active Protocol: Document 07/27/19 15:40 EG (Rec: 07/27/19 15:58 EG [email or web address]) Physical Therapy Assessment Assessment Summary Assessment Patient did well with treatment today and moved with more awareness on the L foor during gait training. When patient would do this, he had increased tremor in the L hand which should be continually assessed as medication dosage increases. Patient did well with hurdles and carrying weighted ball and was stable during this activity. Patient should continue to practice stepping on to foam pad for balance and practice walking backwards. Physical Therapy Plan Next Visit Focus/Plan Next Note Type Treatment Note Next Visit Plan Patient was told to go for a walk at home - see how this went for patient. Patient would also like to go golfing when on his trip and should practice the swing as well as bending over and picking up golf ball. Agatha Ferreira DPT, supervised all treatment performed by, and agreed with the plan of care, as performed by Sunshine Zarate SPT.
--- NOTE | 2019-07-28 12:22 | PT.OTN ---
Current Diagnoses Parkinson's disease (07/28/19) Tremor, unspecified (07/28/19) Unspecified abnormalities of gait and mobility (07/28/19) Physical Therapy Treatment Note PT-OP-A Visit Information Start: 07/13/19 13:49 Freq: Status: Active Protocol: Document 07/28/19 12:08 AW (Rec: 07/28/19 12:22 AW [id number]) Out-Patient Physical Therapy Visit Information Visit Information Visit Type Treatment Note Visit Note 04/08 BIG Program treatment Visit Start Time 11:00 Visit Stop Time 11:55 Total Visit Minutes 55 Visit Number 10 Number of JANITORIAL MANAGER Visits 0 Evaluation Information Evaluation Date 07/13/19 PT-OP-B Current Condition Start: 07/13/19 13:49 Freq: Status: Active Protocol: Document 07/13/19 14:16 EG (Rec: 07/13/19 15:44 EG [email or web address]) Current Condition History of Current Condition Onset Date 03/2019 Current Complaints Tremor in L hand History of Current Condition Patient is an 83 year old male who presents to Physical Therapy after a referral from Neurologist after recently being diagnosed with Parkinson 's Disease. Patient currently went to MD/Neurologist after children recognized tremor in L hand in March. He was put on Levadopa at this time and has been taking it ever since. The patient has noticed little results from the medication. The patient has not had any complaints of balance and has not had any falls within the last year. The biggest complaint the patient has in a lack of being limber and has recognized that it is harder for him to pick things up off the floor without getting down on one knee. Patient does not exercise often if at all. Patient also states that when he is doing activities at home , he can control the tremor in his L hand and that it only occurs during rest. Patient currently lives with and 2 dogs, is driving, and independent in all activities. Patient has had history of back pain and shoulder pain which has been relieved after drinking more water and going to physical therapy. Patient denies any problems with swallowing, pneumonia, past falls, or freezing. Prior Treatments and Tests Seen neurologist for medication for Parkinson Disease. Seen MEAT STOCKER but did not need to focus on loud training . Future Testing and Treatments Planned Continue to see neurologist. Treatment Goals Patient/Caregiver Goals Patient would like to be able to get more limber. 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 Baseline Function- Recreation/Hobbies Golf, drive [place] and go [place], quality time with family, babysit grandchildren Current Functional Impairments (Reported) Functional Limitations- ADL's None Functional Limitations- Mobility/Gait None Functional Limitations- Work/School None Functional Limitations- Recreation/ Bending over to get golf ball Hobbies or pick things up from the ground Personal Factors Other Personal Factors That May Effect High Cholesterol, Motivation Therapy/Recovery to finish, Back Pain PT-OP-C Subjective Start: 07/13/19 13:49 Freq: Status: Active Protocol: Document 07/28/19 12:08 AW (Rec: 07/28/19 12:22 AW [id number]) OP-PT Subjective Patient Comments Patient Comments Pt reports R shoulder pain this AM that he describes as deep but also shooting. He has had this pain before. Patient Reported Progress Improving PT-OP-D Balance Start: 07/13/19 13:49 Freq: Status: Active Protocol: Document 07/13/19 14:16 EG (Rec: 07/13/19 15:44 EG [email or web address]) OP-PT Balance Assessment Sitting Balance Static Sitting Balance Ability Normal Dynamic Sitting Balance Ability Normal Standing Balance Static Standing Balance Ability Normal Dynamic Standing Balance Ability Normal Liu Fall Scale Copyright Permission PT-OP-E Functional Tests Start: 07/13/19 13:49 Freq: Status: Active Protocol: Document 07/13/19 14:16 EG (Rec: 07/13/19 15:44 EG [email or web address]) Functional Tests 6 Minute Walk Test Distance 1,530 feet 10 Meter Walk Test Distance 10 meter Comments normal walkin.67 m/sec fast walkin.0 m/sec Five Times Sit to Stand Test Score 18 sec, 14sec, 14 sec Comments average of 3 rounds: 15.33 sec Other Mini-BESTest Name of Test MINI-BESTest (Balance Evaluation Systems Test) Score 25/28 PT-OP-G Mobility & Gait Start: 07/13/19 13:49 Freq: Status: Active Protocol: Document 07/13/19 14:16 EG (Rec: 07/13/19 15:44 EG [email or web address]) OP Gait Assessment Gait Gait Assistance Required: Independent Gait Deviations General Gait Pattern Within Normal Limits Comments Gait Comments Decreased swing on L side with hiked R shoulder. Decreased step height with increased endurance training during ambulation. L foot caught on ground with min LOB that was recovered with no help from PT at around min 5:40 during 6- MWT. PT-OP-J Posture/Palpation/Skin Start: 07/13/19 13:49 Freq: Status: Active Protocol: Document 07/13/19 14:16 EG (Rec: 07/13/19 15:44 EG [email or web address]) Posture Evaluation Position Sitting Evaluation View Anterior Head/C-Spine Posture Flexed T-Spine Posture Increased Kyphosis Shoulder Posture (L) Rounded,(R) Rounded,(R) Elevated PT-OP-Q Treatments Start: 07/13/19 13:49 Freq: Status: Active Protocol: Document 07/28/19 12:08 AW (Rec: 07/28/19 12:22 AW [id number]) Therapeutic Exercises Sitting Exercises side to side Sitting Exercise Name side to side Side bilateral Reps/Minutes 10 each side, alternating Comments cues for reach with increased amplitude floor to ceiling Sitting Exercise Name floor to ceiling Side bilateral Reps/Minutes 10 Comments pt able to elevate R shoulder without increased pain Standing Exercises sideways step Standing Exercise Name sideways step Side bilateral Equipment Used 2 gym mat Reps/Minutes 15x each side Comments alternating sides forward step Standing Exercise Name forward step Side bilateral Equipment Used 2 gym mat Reps/Minutes 15x each side Comments Alternating steps Other Exercises sideways rock and reach Other Exercise Name sideways rock and reach Side bilateral Equipment Used 2 mat Reps/Minutes 12 each side Comments alternating sides - go slow forward rock and reach Other Exercise Name forward rock and reach Side bilateral Reps/Minutes 15 each side - alternating Comments cue to go slower. Increased awareness of toe and heel lift backward step Other Exercise Name backward step Side bilateral Equipment Used 2 mat; no chair for UE support Reps/Minutes 15x each side Comments improved balance without sacrificing amplitude Therapeutic Activity Therapeutic Activity STS, Walking over obstacles Name STS Reps/Minutes 4x8 reps Comments From large black mat table in lowest position - 1st 2 sets with feet on 2in mat, no weights 2nd 2 sets holding 4 # ball and lifting overhead Gait Training Gait Activity hurdles Description hurdles with foam, river rock, 6 step Level of Assistance SBA Surface carpet Distance/Duration 6 hurdles x 15 Treatment Focus posture, arm swing Comments Foam pads, river rock, and 6 step placed between hurdles to simulate uneven surface. Focused on maintaining upright posture and arm swing. Gait mechanics Description BIG walking Level of Assistance SBA Surface level - tile and carpet Distance/Duration 15 minutes Treatment Focus foot clearance, arm swing, L hand activation Comments Pt with improved foot clearance bilaterally overall, but did catch tow x 2 within at the 5 minute analilia - both within 30 seconds of each other. Pt used finger extension for L hand activation with decreased tremor noted. PT-OP-T Assessment and Plan Start: 07/13/19 13:49 Freq: Status: Active Protocol: Document 07/28/19 12:08 AW (Rec: 07/28/19 12:22 AW [id number]) Physical Therapy Assessment Goals Three Impairment Balance and ROM Short Term Goal (STG) Patient will complete HEP of doing LSVT BIG program exercises 2x/day during the next 4 weeks to help increase ROM during ADL's and increase balance activities to decrease fall risk. STG Duration 4 weeks Two Impairment Gait Short Term Goal (STG) Patient will be able to increase amplitude of movement of L arm swing when walking to be equal to R arm swing when walking for duration of 6 minutes within 2 weeks. STG Duration 2 weeks Herbarium Worker Goal (LTG) Patient will be able to maintain amplitude of movement in both arms and legs as well as keep fingers extended during duration of 6 minute walk without cueing in 4 weeks . LTG Duration 4 weeks One Impairment Functional Activity Short Term Goal (STG) Patient will be able to bend down and pickle solution maker an object that is one foot from the ground with out getting down on one knee in 2 weeks. STG Duration 2 weeks Senior Living Goal (LTG) Patient will be able to bend down and pickle solution maker golf ball with correct mechanics without getting down on one knee in 4 weeks. LTG Duration 4 weeks Assessment Summary Assessment Did not use wrist weights today due to reported shoulder pain. Balance has improved as evidenced by ability to perform backward step on 2 mat without UE support and without sacrificing amplitude. Will continue to monitor motor symptoms as pt changes his medication dosing. Physical Therapy Plan Frequency and Duration Frequency of Treatment 4x/Week Duration of Treatment 4 weeks Plan of Care Start Date 07/13/19 Plan of Care End Date 08/14/19 Next Visit Focus/Plan Next Note Type Treatment Note Next Visit Plan Pt asked to set up a few floor obstacles at home and to practice walking around them with attention to arm swing, left hand activation.
--- NOTE | 2019-07-29 16:07 | PT.OTN ---
Current Diagnoses Parkinson's disease (07/29/19) Tremor, unspecified (07/29/19) Unspecified abnormalities of gait and mobility (07/29/19) Physical Therapy Treatment Note PT-OP-A Visit Information Start: 07/13/19 13:49 Freq: Status: Active Protocol: Document 07/29/19 15:23 EG (Rec: 07/29/19 15:33 EG [email or web address]) Out-Patient Physical Therapy Visit Information Visit Information Visit Type Treatment Note Visit Note 05/09 BIG Program treatment Visit Start Time 12:55 Visit Stop Time 13:45 Total Visit Minutes 50 Visit Number 11 Number of ASSEMBLER LATCHES AND SPRINGS Visits 0 PT-OP-B Current Condition Start: 07/13/19 13:49 Freq: Status: Active Protocol: Document 07/13/19 14:16 EG (Rec: 07/13/19 15:44 EG [email or web address]) Current Condition History of Current Condition Onset Date 03/2019 Current Complaints Tremor in L hand History of Current Condition Patient is an 83 year old male who presents to Physical Therapy after a referral from Neurologist after recently being diagnosed with Parkinson 's Disease. Patient currently went to MD/Neurologist after children recognized tremor in L hand in March. He was put on Levadopa at this time and has been taking it ever since. The patient has noticed little results from the medication. The patient has not had any complaints of balance and has not had any falls within the last year. The biggest complaint the patient has in a lack of being limber and has recognized that it is harder for him to pick things up off the floor without getting down on one knee. Patient does not exercise often if at all. Patient also states that when he is doing activities at home , he can control the tremor in his L hand and that it only occurs during rest. Patient currently lives with and 2 dogs, is driving, and independent in all activities. Patient has had history of back pain and shoulder pain which has been relieved after drinking more water and going to physical therapy. Patient denies any problems with swallowing, pneumonia, past falls, or freezing. Prior Treatments and Tests Seen neurologist for medication for Parkinson Disease. Seen LIME MIXER but did not need to focus on loud training . Future Testing and Treatments Planned Continue to see neurologist. Treatment Goals Patient/Caregiver Goals Patient would like to be able to get more limber. 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 Baseline Function- Recreation/Hobbies Golf, drive [place] and go camping, quality time with family, babysit grandchildren Current Functional Impairments (Reported) Functional Limitations- ADL's None Functional Limitations- Mobility/Gait None Functional Limitations- Work/School None Functional Limitations- Recreation/ Bending over to get golf ball Hobbies or pick things up from the ground Personal Factors Other Personal Factors That May Effect High Cholesterol, Motivation Therapy/Recovery to finish, Back Pain PT-OP-C Subjective Start: 07/13/19 13:49 Freq: Status: Active Protocol: Document 07/29/19 15:23 EG (Rec: 07/29/19 15:33 EG [email or web address]) OP-PT Subjective Patient Comments Patient Comments Patient reports that he still has the shoulder pain in L shoulder but it is not as bad as he thought it was going to be after doing exercises yesterday. He doesn't know if this is because of hammering or the exercises but he has felt this pain before and thinks that it will get better . Patient Reported Progress Improving PT-OP-D Balance Start: 07/13/19 13:49 Freq: Status: Active Protocol: Document 07/13/19 14:16 EG (Rec: 07/13/19 15:44 EG [email or web address]) OP-PT Balance Assessment Sitting Balance Static Sitting Balance Ability Normal Dynamic Sitting Balance Ability Normal Standing Balance Static Standing Balance Ability Normal Dynamic Standing Balance Ability Normal Liu Fall Scale Copyright Permission PT-OP-E Functional Tests Start: 07/13/19 13:49 Freq: Status: Active Protocol: Document 07/13/19 14:16 EG (Rec: 07/13/19 15:44 EG [email or web address]) Functional Tests 6 Minute Walk Test Distance 1,530 feet 10 Meter Walk Test Distance 10 meter Comments normal walkin.67 m/sec fast walkin.0 m/sec Five Times Sit to Stand Test Score 18 sec, 14sec, 14 sec Comments average of 3 rounds: 15.33 sec Other Mini-BESTest Name of Test MINI-BESTest (Balance Evaluation Systems Test) Score 25/28 PT-OP-G Mobility & Gait Start: 07/13/19 13:49 Freq: Status: Active Protocol: Document 07/13/19 14:16 EG (Rec: 07/13/19 15:44 EG [email or web address]) OP Gait Assessment Gait Gait Assistance Required: Independent Gait Deviations General Gait Pattern Within Normal Limits Comments Gait Comments Decreased swing on L side with hiked R shoulder. Decreased step height with increased endurance training during ambulation. L foot caught on ground with min LOB that was recovered with no help from PT at around min 5:40 during 6- MWT. PT-OP-J Posture/Palpation/Skin Start: 07/13/19 13:49 Freq: Status: Active Protocol: Document 07/13/19 14:16 EG (Rec: 07/13/19 15:44 EG [email or web address]) Posture Evaluation Position Sitting Evaluation View Anterior Head/C-Spine Posture Flexed T-Spine Posture Increased Kyphosis Shoulder Posture (L) Rounded,(R) Rounded,(R) Elevated PT-OP-Q Treatments Start: 07/13/19 13:49 Freq: Status: Active Protocol: Document 07/29/19 15:23 EG (Rec: 07/29/19 15:33 EG [email or web address]) Therapeutic Exercises Sitting Exercises side to side Sitting Exercise Name side to side Side bilateral Reps/Minutes 10 each side, alternating Comments cue for reaching long instead of high for shoulder floor to ceiling Sitting Exercise Name floor to ceiling Side bilateral Reps/Minutes 10 Comments cue to keep shoulder ER Standing Exercises sideways step Standing Exercise Name sideways step Side bilateral Equipment Used 2 gym mat Reps/Minutes 12x each side Comments alternating sides forward step Standing Exercise Name forward step Side bilateral Equipment Used 2 gym mat Reps/Minutes 12x each side Comments Alternating steps Other Exercises sideways rock and reach Other Exercise Name sideways rock and reach Side bilateral Equipment Used 2 mat Reps/Minutes 12 each side Comments alternating sides - go slow forward rock and reach Other Exercise Name forward rock and reach Side bilateral Reps/Minutes 15 each side - alternating Comments cue to go slower. Increased awareness of toe and heel lift backward step Other Exercise Name backward step Side bilateral Equipment Used 2 mat; no chair for UE support Reps/Minutes 12x each side Comments cue for front toe lift - increased balance challenge with L leg back Therapeutic Activity Therapeutic Activity Picking up object from ground Name Picking up golf ball from floor Reps/Minutes 10 min Comments Did with ball on the ney. Able to bend down and order picker/assembler with bilateral hands. Need to get down on knee to order picker/assembler the ball from inside the cone. Work on bringing L knee down with control STS, Walking over obstacles Name STS Reps/Minutes 2x10 Comments From large black mat table in lowest position - 1st set standing on balance board A/P 2nd set standing on balance board Lateral Gait Training Gait Activity Gait mechanics Description BIG walking Level of Assistance SBA Surface level - tile and carpet Distance/Duration 8 minutes Treatment Focus foot clearance, arm swing, L hand activation Comments Patient did well with quick turns and walking around obstacles in the gym PT-OP-T Assessment and Plan Start: 07/13/19 13:49 Freq: Status: Active Protocol: Document 07/29/19 15:23 EG (Rec: 07/29/19 15:33 EG [email or web address]) Physical Therapy Assessment Assessment Summary Assessment Patient did well with exercises today but does need continual cueing to go slower during backwards stepping, rocking, and pivot turns to maintain balance on an unstable surface. Patient did well with picking up gold club and should continue to work on slowly placing L leg down when kneeling to maintain control throughout the movement. He has more ROM in the spine evident by picking up a small object from ground with no LOB. Goals were talked about today and all have been worked on throughout therapy. Physical Therapy Plan Next Visit Focus/Plan Next Note Type Treatment Note Next Visit Plan Begin objective testing next visit to prepare for discharge .
--- NOTE | 2019-07-30 17:42 | PT.OTN ---
Current Diagnoses Parkinson's disease (07/30/19) Tremor, unspecified (07/30/19) Unspecified abnormalities of gait and mobility (07/30/19) Physical Therapy Treatment Note PT-OP-A Visit Information Start: 07/13/19 13:49 Freq: Status: Active Protocol: Document 07/30/19 16:36 EG (Rec: 07/30/19 16:48 EG [email or web address]) Out-Patient Physical Therapy Visit Information Visit Information Visit Type Treatment Note Visit Note 06/08 BIG Program treatment Visit Start Time 11:00 Visit Stop Time 12:01 Total Visit Minutes 61 Visit Number 12 Number of BUTCHER SCULLION Visits 0 PT-OP-B Current Condition Start: 07/13/19 13:49 Freq: Status: Active Protocol: Document 07/13/19 14:16 EG (Rec: 07/13/19 15:44 EG [email or web address]) Current Condition History of Current Condition Onset Date 03/2019 Current Complaints Tremor in L hand History of Current Condition Patient is an 83 year old male who presents to Physical Therapy after a referral from Neurologist after recently being diagnosed with Parkinson 's Disease. Patient currently went to MD/Neurologist after children recognized tremor in L hand in March. He was put on Levadopa at this time and has been taking it ever since. The patient has noticed little results from the medication. The patient has not had any complaints of balance and has not had any falls within the last year. The biggest complaint the patient has in a lack of being limber and has recognized that it is harder for him to pick things up off the floor without getting down on one knee. Patient does not exercise often if at all. Patient also states that when he is doing activities at home , he can control the tremor in his L hand and that it only occurs during rest. Patient currently lives with and 2 dogs, is driving, and independent in all activities. Patient has had history of back pain and shoulder pain which has been relieved after drinking more water and going to physical therapy. Patient denies any problems with swallowing, pneumonia, past falls, or freezing. Prior Treatments and Tests Seen neurologist for medication for Parkinson Disease. Seen ALTERNATIVE MEDICINE PRACTITIONER but did not need to focus on loud training . Future Testing and Treatments Planned Continue to see neurologist. Treatment Goals Patient/Caregiver Goals Patient would like to be able to get more limber. 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 Baseline Function- Recreation/Hobbies Golf, drive [place] and go [place], quality time with family, babysit grandchildren Current Functional Impairments (Reported) Functional Limitations- ADL's None Functional Limitations- Mobility/Gait None Functional Limitations- Work/School None Functional Limitations- Recreation/ Bending over to get golf ball Hobbies or pick things up from the ground Personal Factors Other Personal Factors That May Effect High Cholesterol, Motivation Therapy/Recovery to finish, Back Pain PT-OP-C Subjective Start: 07/13/19 13:49 Freq: Status: Active Protocol: Document 07/30/19 16:36 EG (Rec: 07/30/19 16:48 EG [email or web address]) OP-PT Subjective Patient Comments Patient Comments Patient reported that his L shoulder is starting to feel better and he was able to sleep on it last night. Patient reported also that he had some more work to do in his RV today and this weekend that will require a lot of reaching. Patient was unable to complete BIG exercises yesterday because he thought it would be best to rest his shoulder. Patient Reported Progress Improving PT-OP-D Balance Start: 07/13/19 13:49 Freq: Status: Active Protocol: Document 07/13/19 14:16 EG (Rec: 07/13/19 15:44 EG [email or web address]) OP-PT Balance Assessment Sitting Balance Static Sitting Balance Ability Normal Dynamic Sitting Balance Ability Normal Standing Balance Static Standing Balance Ability Normal Dynamic Standing Balance Ability Normal Liu Fall Scale Copyright Permission PT-OP-E Functional Tests Start: 07/13/19 13:49 Freq: Status: Active Protocol: Document 07/30/19 16:36 EG (Rec: 07/30/19 16:51 EG [email or web address]) Functional Tests 6 Minute Walk Test Distance 1597 feet Device Used none Comments 2 periods of LOB with I recovery, due to L toe getting caught on ground 10 Meter Walk Test Distance 5 sec normal, 4 sec fast Comments 2.0 m/s and 2/5 m/s respectively PT-OP-G Mobility & Gait Start: 07/13/19 13:49 Freq: Status: Active Protocol: Document 07/13/19 14:16 EG (Rec: 07/13/19 15:44 EG [email or web address]) OP Gait Assessment Gait Gait Assistance Required: Independent Gait Deviations General Gait Pattern Within Normal Limits Comments Gait Comments Decreased swing on L side with hiked R shoulder. Decreased step height with increased endurance training during ambulation. L foot caught on ground with min LOB that was recovered with no help from PT at around min 5:40 during 6- MWT. PT-OP-J Posture/Palpation/Skin Start: 07/13/19 13:49 Freq: Status: Active Protocol: Document 07/13/19 14:16 EG (Rec: 07/13/19 15:44 EG [email or web address]) Posture Evaluation Position Sitting Evaluation View Anterior Head/C-Spine Posture Flexed T-Spine Posture Increased Kyphosis Shoulder Posture (L) Rounded,(R) Rounded,(R) Elevated PT-OP-Q Treatments Start: 07/13/19 13:49 Freq: Status: Active Protocol: Document 07/30/19 16:36 EG (Rec: 07/30/19 16:48 EG [email or web address]) Therapeutic Exercises Sitting Exercises side to side Sitting Exercise Name side to side Side bilateral Resistance 1# wrist weights Reps/Minutes 10 each side Comments cues to reach leg with increased amplitude floor to ceiling Sitting Exercise Name floor to ceiling Side bilateral Resistance 1# wrist weights Reps/Minutes 10 Comments cues for big hands, crisp movement Standing Exercises sideways step Standing Exercise Name sideways step Side bilateral Resistance 1# wrist weights Equipment Used 2 gym mat Reps/Minutes 12x each side Comments alternating sides forward step Standing Exercise Name forward step Side bilateral Resistance 1# wrist weights Equipment Used 2 gym mat Reps/Minutes 15x each side Comments Alternating steps Other Exercises sideways rock and reach Other Exercise Name sideways rock and reach Side bilateral Resistance 1# wrist weights Equipment Used 2 mat Reps/Minutes 12 each side Comments alternating sides - go slow forward rock and reach Other Exercise Name forward rock and reach Side bilateral Resistance 1# wrist weights Reps/Minutes 15 each side - alternating Comments cue to go slower. Increased awareness of toe and heel lift backward step Other Exercise Name backward step Side bilateral Resistance 1# wrist weights Equipment Used no chair for UE support Reps/Minutes 12x each side Comments cue for front toe lift and increased bilateral arm extension Therapeutic Activity Therapeutic Activity STS, Walking over obstacles Name STS Reps/Minutes 2x10 Comments From box with couch cusion on the box - about 2 feet from ground Gait Training Gait Activity Gait mechanics Description BIG walking Level of Assistance SBA Surface level - tile and carpet Distance/Duration 8 minutes Treatment Focus foot clearance, arm swing, L hand activation Comments Peformed 6 min walk test and 10 meter walk test PT-OP-T Assessment and Plan Start: 07/13/19 13:49 Freq: Status: Active Protocol: Document 07/30/19 16:36 EG (Rec: 07/30/19 16:48 EG [email or web address]) Physical Therapy Assessment Assessment Summary Assessment Patient tolerated exercises today with ankle weights on the wrists with decreased shoulder pain. Reassessment was done of functional tests which was documented. Patient has overall increased distance with 6 minute walk test and chosen walking speed is 2.0m/ sec and fast walking speed is 2.5 m/sec. 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 Patient was educated on importance of picking up feet and possibly considering getting trekking poles for walking when on trip with family. Patient is also concerned about intermittent back aches and was told that this program is focused on increasing amplitude of movement for Parkinson's disease but that coming back to PT to work on core stability and strength after his trip will help with this back pain. Physical Therapy Plan Next Visit Focus/Plan Next Note Type Discharge Summary Next Visit Plan Patient's miniBest-Test should be assessed as well as 5x STS .
--- NOTE | 2019-08-04 13:47 | PT.OTN ---
Current Diagnoses Parkinson's disease (08/04/19) Tremor, unspecified (08/04/19) Unspecified abnormalities of gait and mobility (08/04/19) Physical Therapy Treatment Note PT-OP-A Visit Information Start: 07/13/19 13:49 Freq: Status: Active Protocol: Document 08/04/19 11:00 EG (Rec: 08/04/19 12:52 EG [email or web address]) Out-Patient Physical Therapy Visit Information Visit Information Visit Type Discharge Summary Visit Note BIG Program treatment Visit Start Time 11:04 Visit Stop Time 12:00 Total Visit Minutes 56 Visit Number 13 Number of GUEST SERVICE MANAGER Visits 0 PT-OP-B Current Condition Start: 07/13/19 13:49 Freq: Status: Active Protocol: Document 07/13/19 14:16 EG (Rec: 07/13/19 15:44 EG [email or web address]) Current Condition History of Current Condition Onset Date 03/2019 Current Complaints Tremor in L hand History of Current Condition Patient is an 83 year old male who presents to Physical Therapy after a referral from Neurologist after recently being diagnosed with Parkinson 's Disease. Patient currently went to MD/Neurologist after children recognized tremor in L hand in March. He was put on Levadopa at this time and has been taking it ever since. The patient has noticed little results from the medication. The patient has not had any complaints of balance and has not had any falls within the last year. The biggest complaint the patient has in a lack of being limber and has recognized that it is harder for him to pick things up off the floor without getting down on one knee. Patient does not exercise often if at all. Patient also states that when he is doing activities at home , he can control the tremor in his L hand and that it only occurs during rest. Patient currently lives with and 2 dogs, is driving, and independent in all activities. Patient has had history of back pain and shoulder pain which has been relieved after drinking more water and going to physical therapy. Patient denies any problems with swallowing, pneumonia, past falls, or freezing. Prior Treatments and Tests Seen neurologist for medication for Parkinson Disease. Seen RACK WASHER but did not need to focus on loud training . Future Testing and Treatments Planned Continue to see neurologist. Treatment Goals Patient/Caregiver Goals Patient would like to be able to get more limber. 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 Baseline Function- Recreation/Hobbies Golf, drive [place] down [place] and go camping, quality time with family, babysit grandchildren Current Functional Impairments (Reported) Functional Limitations- ADL's None Functional Limitations- Mobility/Gait None Functional Limitations- Work/School None Functional Limitations- Recreation/ Bending over to get golf ball Hobbies or pick things up from the ground Personal Factors Other Personal Factors That May Effect High Cholesterol, Motivation Therapy/Recovery to finish, Back Pain PT-OP-C Subjective Start: 07/13/19 13:49 Freq: Status: Active Protocol: Document 08/04/19 11:00 EG (Rec: 08/04/19 12:52 EG [email or web address]) OP-PT Subjective Patient Comments Patient Comments Patient reported that his R shoulder was bothering him a lot this morning. He did more this weekend with the shoulder as he was washing the windows for his RV and thinks that might be why he is hurting in his shoulder. Patient was also wondering what things he should pay most attention to when he does on his trip and the most important exercises for him to do. Patient Reported Progress Improving PT-OP-D Balance Start: 07/13/19 13:49 Freq: Status: Active Protocol: Document 07/13/19 14:16 EG (Rec: 07/13/19 15:44 EG [email or web address]) OP-PT Balance Assessment Sitting Balance Static Sitting Balance Ability Normal Dynamic Sitting Balance Ability Normal Standing Balance Static Standing Balance Ability Normal Dynamic Standing Balance Ability Normal Liu Fall Scale Copyright Permission PT-OP-E Functional Tests Start: 07/13/19 13:49 Freq: Status: Active Protocol: Document 08/04/19 11:00 EG (Rec: 08/04/19 13:43 EG [email or web address]) Functional Tests Five Times Sit to Stand Test Score 13.67 sec Comments eval: 15.33 sec, DC: 13.67 sec Other Mini-BESTest Name of Test Mini-BESTest Score 28 Comment Improved from 25 to 28 from eval to discharge PT-OP-G Mobility & Gait Start: 07/13/19 13:49 Freq: Status: Active Protocol: Document 07/13/19 14:16 EG (Rec: 07/13/19 15:44 EG [email or web address]) OP Gait Assessment Gait Gait Assistance Required: Independent Gait Deviations General Gait Pattern Within Normal Limits Comments Gait Comments Decreased swing on L side with hiked R shoulder. Decreased step height with increased endurance training during ambulation. L foot caught on ground with min LOB that was recovered with no help from PT at around min 5:40 during 6- MWT. PT-OP-J Posture/Palpation/Skin Start: 07/13/19 13:49 Freq: Status: Active Protocol: Document 07/13/19 14:16 EG (Rec: 07/13/19 15:44 EG [email or web address]) Posture Evaluation Position Sitting Evaluation View Anterior Head/C-Spine Posture Flexed T-Spine Posture Increased Kyphosis Shoulder Posture (L) Rounded,(R) Rounded,(R) Elevated PT-OP-Q Treatments Start: 07/13/19 13:49 Freq: Status: Active Protocol: Document 08/04/19 11:00 EG (Rec: 08/04/19 13:43 EG [email or web address]) Therapeutic Exercises Sitting Exercises side to side Sitting Exercise Name side to side Side bilateral Reps/Minutes 10 each side Comments cues to reach leg with increased amplitude floor to ceiling Sitting Exercise Name floor to ceiling Side bilateral Reps/Minutes 10 Comments cues for big hands, crisp movement Standing Exercises sideways step Standing Exercise Name sideways step Side bilateral Equipment Used 2 gym mat Reps/Minutes 12x each side Comments alternating sides forward step Standing Exercise Name forward step Side bilateral Equipment Used 2 gym mat Reps/Minutes 15x each side Comments Alternating steps Other Exercises sideways rock and reach Other Exercise Name sideways rock and reach Side bilateral Equipment Used 2 mat Reps/Minutes 12 each side Comments alternating sides - improved stability forward rock and reach Other Exercise Name forward rock and reach Side bilateral Reps/Minutes 15 each side - alternating Comments cue to go slower. Increased awareness of toe and heel lift backward step Other Exercise Name backward step Side bilateral Equipment Used no chair for UE support Reps/Minutes 12x each side Comments cue for front toe lift and increased bilateral arm extension Therapeutic Activity Therapeutic Activity STS, Walking over obstacles Name STS Reps/Minutes 3x5 Comments From standard arm chair - timed Gait Training Gait Activity Gait mechanics Description BIG walking Level of Assistance SBA Surface level - tile and carpet Distance/Duration 8 minutes Treatment Focus foot clearance, arm swing, L hand activation Comments Perfomed mini-BestTEST PT-OP-T Assessment and Plan Start: 07/13/19 13:49 Freq: Status: Active Protocol: Document 08/04/19 11:00 EG (Rec: 08/04/19 13:43 EG [email or web address]) Physical Therapy Assessment Goals Three Impairment Balance and ROM Short Term Goal (STG) Patient will complete HEP of doing LSVT BIG program exercises 2x/day during the next 4 weeks to help increase ROM during ADL's and increase balance activities to decrease fall risk. 08/04/2019: Patient has completed HEP for the last 3 weeks and was given education and exercise car body mechanic training to continue performance at home. STG Duration MET Two Impairment Gait Short Term Goal (STG) Patient will be able to increase amplitude of movement of L arm swing when walking to be equal to R arm swing when walking for duration of 6 minutes within 2 weeks. STG Duration MET Skilled Nursing Goal (LTG) Patient will be able to maintain amplitude of movement in both arms and legs as well as keep fingers extended during duration of 6 minute walk without cueing in 4 weeks . 08/04/2019: Patient is able to maintain amplitude of arm swing during 6 min walk test but continues to need min verbal cueing to maintain extended fingers during duration of the walk. LTG Duration Improved One Impairment Functional Activity Short Term Goal (STG) Patient will be able to bend down and picker packer an object that is one foot from the ground with out getting down on one knee in 2 weeks. STG Duration MET Skilled Nursing Goal (LTG) Patient will be able to bend down and picker packer golf ball with correct mechanics without getting down on one knee in 4 weeks. 08/04/2019: Patient has met this goal and is able to successfully picker packer a golf ball and place ball on a ney safely and with stability without needing to place weight on one knee on the ground. LTG Duration MET Progress Towards Goals Progress Towards Goals Goals Met Progress Comments Comments on goal progression above. Assessment Summary Assessment Patient has sucessfully completed 13/ treatments of the LSVT BIG program but does have to complete his therapy early due to leaving on vacation. The patient has improved gait speed at 2.0m/s as well as improved 5x STS time done with good form and stability. The patient has also improved Mini-BesTEST score showing improved balance and recovery as well as gait speed and transitions between gait. The patient has gained increased awareness of movement and has integrated amplitude in to most movements including walking. Patient was left with HEP including BIG exercises as well as education on importance of continual movement and cardiovascular endurance training. Patient was also educated on importance of a 6- month tune-up to check in and see how symptoms have progressed and to reevaluate quality of movement in ADL's. Physical Therapy Plan Discharge Physical Therapy Discharge Reasons Goals Met Discharge Comments Patient is leaving on vacation and has successfully completed LSVT BIG sessions. Patient was left with education on HEP. Yahaira Ferreira DPT, supervised all treatment performed by, and agreed with the plan of care, as performed by Sunshine Zarate, MAIRA.
== END 2019-08-28 14:30 ==
LOC: PHYS 11:00
PROVIDERS: PCP Family Medicine; Visit Provider Psychiatry & Neurology Neurology
DX: G20 Parkinson's disease (principal); R26.9 Unspecified abnormalities of gait and mobility
CPT/HCPCS: 97110; 97116; 97161; 97530

== ENCOUNTER → 2020-07-19 15:18 | Outpatient (CLI) | payer MEDICARE, SELFPAY ==
[2020-07-19] MEDS: COVID-19 VACC #1, MRNA(MOD) 100 MCG/0.5 ML VIAL IM (15:24)
== END ==
PROVIDERS: PCP Family Medicine; Visit Provider Internal Medicine
DX: Z23 Encounter for immunization (principal)
CPT/HCPCS: 0011A; 91301

== ENCOUNTER → 2020-08-16 15:22 | Outpatient (CLI) | payer MEDICARE, SELFPAY ==
[2020-08-16] MEDS: COVID-19 VACC #2, MRNA(MOD) 100 MCG/0.5 ML VIAL IM (15:30)
== END ==
PROVIDERS: PCP Family Medicine; Visit Provider Internal Medicine
DX: Z23 Encounter for immunization (principal)
CPT/HCPCS: 0012A; 91301

== ENCOUNTER → 2021-05-05 10:01 | Outpatient (CLI) | payer MEDICARE, SELFPAY ==
[2021-05-05] MEDS: COVID-19 VACC #3, MRNA(MOD) 50 MCG/0.25 ML VIAL IM (10:04)
== END ==
PROVIDERS: PCP Family Medicine; Visit Provider Internal Medicine
DX: Z23 Encounter for immunization (principal)
CPT/HCPCS: 0013A; 91301

== ENCOUNTER → 2022-01-15 09:21 | Outpatient (CLI) | payer OTHER, SELFPAY ==
[2022-01-15 10:50] LABS: Add Manual Diff / Slide Review NO; Basophils Absolute Auto 0 /uL (0-100); Basophils Percent Auto 0.5 % (0-2); Eosinophils Absolute Auto 100 /uL (0-450); Eosinophils Percent Auto 1.6 % (2-4); Hematocrit 39.7 % (41-53); Hemoglobin 13.6 g/dL (13.5-17.5); Lymphocytes Absolute Auto 1200 /uL (1100-4500); Lymphocytes Percent Auto 24.2 % (25-40); Mean Corpuscular HGB Conc 34.4 % (30-36); Mean Corpuscular Hemoglobin 32.6 PG (26-34); Mean Corpuscular Volume 94.7 fL (80-100); Monocytes Absolute Auto 400 /uL (0-900); Monocytes Percent Auto 8.6 % (3-14); Neutrophils Absolute Auto 3300 /uL (1500-7000); Neutrophils Percent Auto 65.1 % (50-75); Platelet Count 167 X10^3/uL (150-400); Red Blood Cell Count 4.19 X10^6/uL (4.5-5.9); Red Cell Distribution Width 13.6 % (11.6-14.8); White Blood Cell Count 5.1 X10^3/uL (4.5-11.0)
[2022-01-15 11:05] LABS: Albumin 3.8 g/dL (3.5-5.0); Albumin Globulin Ratio 1.4 (1.0-2.8); Alkaline Phosphatase 64 U/L (38-126); Aspartate Aminotransferase 27 IU/L (17-59); Bilirubin Total 1.9 mg/dL (0.2-1.3); Blood Urea Nitrogen 20 mg/dL (9-20); Calcium 8.5 mg/dL (8.4-10.2); Carbon Dioxide 29 mmol/L (22-32); Chloride 105 mmol/L (98-107); Cholesterol 151 mg/dL (140-199); Estimated Glomerular Filt Rate > 60 mL/min (>60); Globulin 2.8 g/dL (1.7-4.1); Glucose 103 mg/dL (80-110); HDL Cholesterol 40 mg/dL (40-60); HEMOLYSIS < 15 (0-50); LDL Cholesterol Calculated 89 mg/dL (<100); Potassium 4.2 mmol/L (3.4-5.1); Sodium 138 mmol/L (137-145); Total Protein 6.6 g/dL (6.3-8.2); Triglycerides 111 mg/dL (35-150)
[2022-01-15 11:28] LABS: Alanine Aminotransferase 6 IU/L (<50)
[2022-01-15 12:22] LABS: Thyroid Stimulating Hormone 3.88 uIU/mL (0.47-4.68)
[2022-01-15 16:12] LABS: Prostate Specific Antigen Scrn 1.74 ng/mL (0.1-4.0)
[2022-01-15 17:39] LABS: Hep C Virus Ab w/Reflex Quant NEGATIVE s/c (NEGATIVE)
== END ==
PROVIDERS: PCP Family Medicine; Referring Provider Internal Medicine; Visit Provider Internal Medicine
DX: E78.5 Hyperlipidemia, unspecified (principal); Z12.5 Encounter for screening for malignant neoplasm of prostate; Z11.59 Encounter for screening for other viral diseases; R97.20 Elevated prostate specific antigen [PSA]
CPT/HCPCS: 36415; 80053; 80061; 84443; 85025; 86803; G0103

== ENCOUNTER → 2024-03-31 14:31 | Outpatient (CLI) | payer OTHER, SELFPAY ==
--- NOTE | 2024-03-31 14:33 | DI.RAD.S_ITS ---
PROCEDURE: XR CHEST 2V INDICATIONS: SoB TECHNIQUE: 2 views of the chest were acquired. COMPARISON: None. FINDINGS: Surgical changes and devices: None. Lungs and pleura: Low lung volumes. Central hilar opacification extending to the medial lung bases. 3.0 cm focus of opacification, likely within the anterior segment of the right upper lobe. Mediastinum: Tortuous contour of the aorta. Mediastinal contours are normal. Heart size is normal. Bones and chest wall: Age-indeterminate compression fracture of the T12 vertebral body with approximately 50% height loss. No suspicious bony abnormalities. Soft tissues appear unremarkable. IMPRESSION: 1. 3 cm right upper lobe mass versus focal pneumonia, in a background of likely mild pulmonary edema. CT chest with contrast recommended for further evaluation. 2. Age-indeterminate T12 compression fracture with approximately 50% height loss. Dictated by: Itz Arenas M.D. on 03/31/2024 at 16:34 Approved by: Itz Arenas M.D. on 03/31/2024 at 16:38
== END ==
PROVIDERS: PCP Internal Medicine; Referring Provider Internal Medicine; Visit Provider Internal Medicine
DX: R06.02 Shortness of breath (principal); M48.54XA Collapsed vertebra, not elsewhere classified, thoracic region, initial encounter for fracture
CPT/HCPCS: 71046

== ENCOUNTER → 2024-04-02 14:15 | Outpatient (CLI) | payer OTHER, SELFPAY ==
--- NOTE | 2024-04-02 | DI.CT.S_ITS ---
PROCEDURE: CT CHEST W CON INDICATIONS: MASS OF UPPER LOBE OF RIGHT LUNG TECHNIQUE: After the administration of intravenous contrast, 5 mm thick sections acquired from the pulmonary apices to the posterior costophrenic angles. 1 mm axial lung, 5 mm thick coronal and sagittal reformats and 7 mm axial MIP were acquired. For radiation dose reduction, the following was used: automated exposure control, adjustment of mA and/or kV according to patient size. COMPARISON: [facility], CR, XR CHEST 2V, 03/31/2024, 14:33. FINDINGS: Image quality: Diagnostic. Lower Neck: No enlarged lymph nodes. Thyroid: No thyroid nodules which require sonographic follow up, per consensus guidelines. Axillae: No enlarged lymph nodes. Chest Wall: Unremarkable. Bones: Unremarkable. Lungs and Pleura: Mild right and minimal left pleural effusions. Multiple bilateral pulmonary nodules and mass lesions are identified the largest in the right upper lobe measuring 3.7 x 3.5 cm. Heart: Heart size is enlarged. No pericardial effusion. Thoracic Vessels: The aorta and pulmonary arteries demonstrate normal size. Mediastinum and Cheryl: There is mediastinal and hilar adenopathy. Largest mediastinal lymph node measures 1.7 cm in the anterior right paratracheal region series 3, image 31. A right hilar lymph node is present measuring 3.0 cm series 3, image 39. Esophagus: No wall thickening. Minimal hiatal hernia. Upper Abdomen: There is a partially visualize heterogeneously enhancing hepatic mass measuring 9.5 x 11.1 cm. IMPRESSION: Multiple bilateral pulmonary nodules in mass lesions accompanied by right effusion, mediastinal hilar adenopathy as well as enhancing hepatic mass. Overall constellation of findings is most consistent with malignancy and metastatic disease. Dictated by: Marianna Victoria M.D. on 04/02/2024 at 15:23 Approved by: Marianna Victoria M.D. on 04/02/2024 at 15:26
== END ==
PROVIDERS: PCP Internal Medicine; Referring Provider Internal Medicine; Visit Provider Internal Medicine
DX: J90 Pleural effusion, not elsewhere classified (principal); R59.0 Localized enlarged lymph nodes; R16.0 Hepatomegaly, not elsewhere classified; R91.8 Other nonspecific abnormal finding of lung field; R06.02 Shortness of breath; I51.7 Cardiomegaly
CPT/HCPCS: 71260; Q9967

== ENCOUNTER → 2024-04-09 07:30 | Outpatient (CLI) | payer OTHER, SELFPAY ==
--- NOTE | 2024-04-09 07:31 | DI.CT.S_ITS ---
PROCEDURE: CT ABDOMEN PELVIS W CON INDICATIONS: LIVER MASS,PULMONARY NODULES TECHNIQUE: After the administration of intravenous contrast, axial sections acquired from the lung bases to the pubic symphysis. Coronal and sagittal reformats were performed. For radiation dose reduction, the following was used: automated exposure control, adjustment of mA and/or kV according to patient size. COMPARISON: [facility], CT, CT CHEST W CON, 04/02/2024, 14:29. FINDINGS: Image quality: Diagnostic. Lower Chest: Multiple basilar pulmonary nodules are consistent with pulmonary metastatic disease. Please refer to the recent chest CT. The largest nodule is in the right lung base on image 10 of series 2 measuring 2.5 cm. On that same image, there is a left lung pulmonary nodule measuring 1.4 cm. There is a [id number] right pleural effusion. There is right hilar adenopathy. ABDOMEN: Liver: There is a very large right lobe liver mass with central low attenuation which involves the dome of the liver measuring approximately 8.6 x 11.7 x 9.4 cm. The left lobe is either markedly atrophied or partially resected. Gallbladder: No radiopaque gallstones or wall thickening. Biliary ducts: No biliary dilation. Pancreas: No ductal dilation. Spleen: Size is within normal limits. Adrenal Glands: No adrenal nodules. Kidneys and Ureters: No hydronephrosis. No solid mass. No complex renal cystic lesion which requires follow up. Stomach and Bowel: Normal colonic caliber, without significant wall thickening. Peritoneum: No abnormal intraperitoneal fluid. No free air. Ventral Wall: No significant ventral hernia. Abdominal Nodes: There is a enlarged right cardiophrenic lymph node on image 33 of series 2 measuring 1.9 cm. No suspicious retroperitoneal or pelvic adenopathy. Vessels: Aorta and inferior vena cava are normal in size. PELVIS: Pelvic Organs: Mild prostatomegaly.. Bladder: No bladder wall thickening, accounting for underdistention. Pelvic Nodes: No enlarged lymph nodes. Miscellaneous: No inguinal hernias are seen. Bones: No aggressive osseous abnormality. Old presumed osteoporotic T11 compression. No lytic or blastic bony lesions. IMPRESSION: Findings are consistent with metastatic disease. Findings include a large liver mass and metastatic pulmonary nodules. Comment: The liver mass would be amenable to ultrasound-guided or CT-guided biopsy for diagnosis if clinically important. Dictated by: Kai Rossi M.D. on 04/09/2024 at 9:55 Approved by: Kai Rossi M.D. on 04/09/2024 at 10:06
== END ==
LOC: CT 07:30
PROVIDERS: PCP Internal Medicine; Referring Provider Internal Medicine; Visit Provider Internal Medicine
DX: R16.0 Hepatomegaly, not elsewhere classified (principal); R91.8 Other nonspecific abnormal finding of lung field; N40.0 Benign prostatic hyperplasia without lower urinary tract symptoms
CPT/HCPCS: 74177; Q9967

== ENCOUNTER → 2024-04-28 06:54 | Outpatient (CLI) | payer OTHER, SELFPAY ==
--- NOTE | 2024-04-28 06:55 | DI.ECHO.S_ITS ---
[place] [facility]---------+ [facility] : : [address] : : [place] : : [id number] : : Phone: [phone] Echocardiogram Report + + :Name: AVELINO SAPP Study Date: 04/28/2024 Height: 67 in : :[facility] ReadingLocation: Weight: 212 lb: : Gender: Male BSA: 2.1 m2 : :: 1935 Age: 88 yrs BP: 97/67 mmHg: :Reason For Study: SHORTNESS OF BREATH : :Ordering Physician: ANKIT, : :KRISTIN Performed By: Libby Perez : :Referring: KRISTIN PHAM : + + Interpretation Summary 1) Normal left ventricular size with low normal systolic function (EF 50-55%). 2) Normal right ventricular size and function. 3) Severe biatrial enlargement present. 4) No significant valvular abnormalities. 5) No prior Echo available for comparison. Procedure: A two-dimensional transthoracic echocardiogram with color flow and Doppler was performed. The study quality was technically adequate. There is no prior echocardiogram noted for this patient. The patient was in atrial fibrillation with heart rates between 69-87 bpm during the exam. Left Ventricle: The left ventricle is normal in size. There is borderline concentric left ventricular hypertrophy. The ejection fraction is estimated to be 50-55%. There are no focal wall motion abnormalities. Diastolic function could not be accurately assessed due to atrial fibrillation. Right Ventricle: The right ventricle is normal in size and function. Atria: The left atrium is severely dilated. The right atrium is severely dilated. There is no Doppler evidence for an interatrial shunt. Mitral Valve: The mitral valve leaflets appear mildly thickened, but open well. There is mild mitral regurgitation. Aortic Valve: The aortic valve is trileaflet. The aortic valve is slightly calcified. There is no aortic valve stenosis. No aortic regurgitation is present. Tricuspid Valve: The tricuspid valve is normal in structure and function. There is mild tricuspid regurgitation. Right ventricular systolic pressure is estimated to be 40 mmHg plus the clinically estimated CVP which cannot be estimated on this exam. Pulmonic Valve: The pulmonic valve is not well seen, but is grossly normal. There is mild to moderate pulmonic regurgitation. Great Vessels: The aortic root is normal size. The dimensions of the ascending aorta are normal. The inferior vena cava was not visualized. Pericardium/ Pleura There is no pericardial effusion. There is no pleural effusion. MMode/2D Measurements & Calculations LVIDd: 5.1 cm LVOT diam: 2.2 cm LVIDs: 3.6 cm Ao root diam: 3.5 cm FS: 28.8 % asc Aorta Diam: 3.8 cm IVSd: 1.1 cm Ao Arch Diam (Prox Trans): 3.7 cm LVPWd: 1.0 cm LV quintero. diameter/BSA (cm/m^2): 2.4 LV sys. diameter/BSA (cm/m^2): 1.7 LA A2 area: 30.1 cm2 RA long axis: 6.6 cm LA A4 area: 32.3 cm2 RA area: 28.4 cm2 LA length (vol): 7.5 cm RA vol: 103.9 ml LA vol: 110.4 ml RA : 50.1 ml/m2 LA vol index: 53.3 ml/m2 RVD1 (basal): 4.0 cm RVD2 (mid): 2.9 cm TAPSE: 1.7 cm Doppler Measurements & Calculations Ao V2 max: 102.7 cm/sec LVOT Max Nicolás: 90.5 cm/sec Ao V2 mean: 74.1 cm/sec LV V1 max P.3 mmHg Ao max P.2 mmHg LV V1 VTI: 15.2 cm Ao mean P.5 mmHg CORNELIA(I,D): 3.0 cm2 Ao V2 VTI: 19.8 cm CORNELIA(V,D): 3.5 cm2 sev ratio: 0.77 CORNELIA indexed to BSA (cm^2/m^2): 1.5 MV E max nicolás: 73.9 cm/sec TR max nicolás: 314.9 cm/sec MV A max nicolás: 16.9 cm/sec TR max P.7 mmHg MV E/A: 4.4 PA V2 max: 78.0 cm/sec Med Peak E' Nicolás: 8.6 cm/sec PA V2 mean: 54.3 cm/sec E/E' med: 8.6 PA mean P.3 mmHg Lat Peak E' Nicolás: 12.6 cm/sec PA pr(Accel): 44.7 mmHg E/E' lat: 5.9 E/e' average: 7.2 MV dec time: 0.18 sec MV P1/2t: 50.2 msec MV P1/2t max nicolás: 68.3 cm/sec SV(LVOT): 59.6 ml MVA(P1/2t): 4.4 cm2 Reading Physician:11:48 AM
== END ==
LOC: ECHO 06:54
PROVIDERS: PCP Internal Medicine; Referring Provider Internal Medicine; Visit Provider Internal Medicine
DX: I08.1 Rheumatic disorders of both mitral and tricuspid valves (principal); R06.02 Shortness of breath; G20.A1 Parkinson's disease without dyskinesia, without mention of fluctuations; I49.9 Cardiac arrhythmia, unspecified; E78.5 Hyperlipidemia, unspecified
CPT/HCPCS: 93306